=== PATIENT | male | born 1950 | race Caucasian/White ===

== ENCOUNTER → 2016-10-29 | Outpatient (CLI) | payer BC ==
[2016-10-29 11:09] LABS: ALT 27 U/L (21-72); AST 14 U/L (17-59); Alkaline Phosphatase 74 U/L (38-126); Anion Gap 7 mmol/L; Blood Urea Nitrogen 14 mg/dL (9-20); Calcium 10.3 mg/dL (8.4-10.2); Carbon Dioxide 30 mmol/L (22-30); Chloride 103 mmol/L (98-107); Cholesterol 184 mg/dL (<200); Glucose 175 mg/dL (74-99); HDL Cholesterol 67 mg/dL (40-60); Non-African American GFR(MDRD) >60 (>60 ml/min/1.73 sqM); Sodium 140 mmol/L (137-145); Total Bilirubin 0.6 mg/dL (0.2-1.3); Total Protein 6.9 g/dL (6.3-8.2); Triglycerides 53 mg/dL (<150)
== END ==
LOC: LABWHC1 09:44
PROVIDERS: ATTEND Internal Medicine Endocrinology, Diabetes & Metabolism
DX: E11.65 Type 2 diabetes mellitus with hyperglycemia (principal)
CPT/HCPCS: 36415; 80053; 80061; 82043

== ENCOUNTER → 2017-02-09 | Outpatient (CLI) | payer BC ==
[2017-02-09 10:52] LABS: ALT 29 U/L (21-72); AST 14 U/L (17-59); Alkaline Phosphatase 68 U/L (38-126); Anion Gap 6 mmol/L; Blood Urea Nitrogen 15 mg/dL (9-20); Calcium 10.6 mg/dL (8.4-10.2); Carbon Dioxide 30 mmol/L (22-30); Chloride 104 mmol/L (98-107); Cholesterol 169 mg/dL (<200); Glucose 152 mg/dL (74-99); HDL Cholesterol 59 mg/dL (40-60); Non-African American GFR(MDRD) >60 (>60 ml/min/1.73 sqM); Sodium 140 mmol/L (137-145); Total Bilirubin 0.5 mg/dL (0.2-1.3); Total Protein 6.4 g/dL (6.3-8.2); Triglycerides 56 mg/dL (<150)
[2017-02-09 16:20] LABS: Urine Creatinine 86.6 mg/dL
== END | disposition home or self-care (01) ==
LOC: LABWHC1 10:08
PROVIDERS: ATTEND Internal Medicine Endocrinology, Diabetes & Metabolism
DX: E11.65 Type 2 diabetes mellitus with hyperglycemia (principal)
CPT/HCPCS: 36415; 80053; 80061; 82043; 82570; 84443

== ENCOUNTER → 2017-10-19 | Outpatient (CLI) | payer BC, MEDICARE ==
[2017-10-19 11:06] LABS: ALT 25 U/L (21-72); AST 13 U/L (17-59); Albumin 4.1 g/dL (3.5-5.0); Alkaline Phosphatase 70 U/L (38-126); Anion Gap 9 mmol/L; Blood Urea Nitrogen 18 mg/dL (9-20); Calcium 10.5 mg/dL (8.4-10.2); Carbon Dioxide 29 mmol/L (22-30); Chloride 103 mmol/L (98-107); Cholesterol 171 mg/dL (<200); Glucose 168 mg/dL (74-99); HDL Cholesterol 58 mg/dL (40-60); LDL Cholesterol,Calculated 104 mg/dL (0-99); Potassium 4.7 mmol/L (3.5-5.1); Sodium 141 mmol/L (137-145); Total Bilirubin 0.7 mg/dL (0.2-1.3); Total Protein 6.5 g/dL (6.3-8.2); Triglycerides 43 mg/dL (<150)
[2017-10-19 17:55] LABS: Hemoglobin A1C 7.3 % (4.0-6.0)
== END | disposition home or self-care (01) ==
LOC: LABWHC1 10:05
PROVIDERS: ATTEND Internal Medicine Endocrinology, Diabetes & Metabolism
DX: E11.65 Type 2 diabetes mellitus with hyperglycemia (principal)
CPT/HCPCS: 36415; 80053; 80061; 82043; 82570; 83036

== ENCOUNTER → 2018-01-22 | Outpatient (CLI) | payer MEDICARE ==
[2018-01-22 09:46] LABS: ALT 28 U/L (21-72); AST 12 U/L (17-59); Alkaline Phosphatase 67 U/L (38-126); Anion Gap 9 mmol/L; Blood Urea Nitrogen 15 mg/dL (9-20); Calcium 10.2 mg/dL (8.4-10.2); Carbon Dioxide 29 mmol/L (22-30); Chloride 103 mmol/L (98-107); Cholesterol 152 mg/dL (<200); Glucose 139 mg/dL (74-99); HDL Cholesterol 59 mg/dL (40-60); LDL Cholesterol,Calculated 79 mg/dL (0-99); Potassium 4.5 mmol/L (3.5-5.1); Sodium 141 mmol/L (137-145); Total Bilirubin 0.6 mg/dL (0.2-1.3); Total Protein 6.2 g/dL (6.3-8.2); Triglycerides 71 mg/dL (<150)
== END | disposition home or self-care (01) ==
LOC: LABWHC1 08:55
PROVIDERS: ATTEND Internal Medicine Endocrinology, Diabetes & Metabolism
DX: E11.65 Type 2 diabetes mellitus with hyperglycemia (principal)
CPT/HCPCS: 36415; 80053; 80061; 82607; 83036; 84443

== ENCOUNTER → 2018-08-12 | Outpatient (CLI) | payer MEDICARE ==
--- NOTE | 2018-08-12 12:15 | XR ---
EXAMINATION TYPE: XR thoracic spine 2V DATE OF EXAM: 08/12/2018 COMPARISON: NONE HISTORY: Pain Alignment is anatomic. There is no compression deformities. Vertebral body height and disc interspa bruno are maintained. Multilevel hypertrophic and degenerative changes of the vertebral column. Degene rative disc disease involving the lower cervical spine. Curvature of the spine noted. IMPRESSION: 1. Multilevel hypertrophic and degenerative changes.
--- NOTE | 2018-08-12 12:49 | XR ---
EXAMINATION TYPE: XR cervical spine comp DATE OF EXAM: 08/12/2018 COMPARISON: NONE HISTORY: Palpable abnormal TECHNIQUE: Four views are submitted. FINDINGS: The odontoid is intact. There are no compression deformities. The prevertebral soft tissue structur es are within normal limits. Severe degenerative disc disease C5-6 and C6-C7 with hypertrophic spurr ing. Multilevel facet arthropathy. Foraminal encroachment at these levels. IMPRESSION: 1. Multilevel severe degenerative disc disease.
== END ==
LOC: RADXRMAIN 11:48
PROVIDERS: ATTEND Family Medicine
DX: M47.812 Spondylosis without myelopathy or radiculopathy, cervical region (principal)
CPT/HCPCS: 72050; 72070

== ENCOUNTER → 2018-09-21 | Outpatient (CLI) | payer MEDICARE ==
[2018-09-21 16:05] LABS: Blood Urea Nitrogen 21 mg/dL (9-20)
--- NOTE | 2018-09-22 07:23 | CT ---
EXAMINATION TYPE: CT soft tissue neck w con DATE OF EXAM: 09/21/2018 HISTORY: Localized swelling, mass and lump on left ear area. BB placed on region of interest. COMPARISON: NONE CT DLP: 738.6 mGycm. Automated Exposure Control for Dose Reduction was Utilized. TECHNIQUE: CT scan of the neck is performed with IV Contrast, patient injected with 100ml mL of Isov ue 300, axial images are obtained, coronal and sagittal reformatted images are reviewed. FINDINGS: Metallic BB is placed at level of clinical concern axial image 73. In the posterior scalp at level of inferior aspect posterior fossa and skull base just below skin surface there is 17 x 12 mm oval soft tissue lesion with slight lobulation measuring 21 mm craniocaudal dimension axial image 72 and sagit rajni image 76. There is surrounding subcutaneous fat noted. Lesion is superficial to the deeper scalp muscles. Airway: No gross abnormality seen. Parotid/submandibular glands: No gross abnormality seen. Carotid/Vascular Structures: Mild calcified plaque right carotid bulb is present. There is mild calci fied plaque of aorta extending into branch vessels. Osseous Structures: There is moderate disc space narrowing with vacuum disc phenomenon at C5-C6 and C 6-C7 levels. There is advanced disc space narrowing with endplate sclerosis and mild to moderate ante rior spurring at C7-T1 level. Other: There are some scattered subcentimeter lymph nodes throughout the neck bilaterally, no suspici ous greater than 1 cm adenopathy is present. The parapharyngeal Pharyngeal fat spaces are maintained bilaterally. IMPRESSION: A 2.1 cm slightly lobulated subcutaneous soft tissue mass corresponds to site of palpable abnormality. Etiology uncertain. Differential would include metastatic focus. Imaging guided samplin g likely under ultrasound can be performed to further evaluate if desired.
== END | disposition home or self-care (01) ==
LOC: RADCTMAIN 15:27
PROVIDERS: ATTEND Otolaryngology
DX: R22.1 Localized swelling, mass and lump, neck (principal)
CPT/HCPCS: 82565; 84520; 70491; 36415; Q9967

== ENCOUNTER → 2018-10-05 | Outpatient (CLI) | payer MEDICARE ==
[2018-10-05 17:14] LABS: Albumin 4.3 g/dL (3.80-4.90); Albumin/Globulin Ratio 2.39 (1.60-3.17); Anion Gap 5.5 mmol/L (4.00-12.00); Calcium 10.4 mg/dL (8.7-10.3); Carbon Dioxide 29.5 mmol/L (21.6-31.8); Globulin 1.8 g/dL (1.6-3.3); LDL Cholesterol,Calculated 84.6 mg/dL (0.0-131.0); Potassium 4.9 mmol/L (3.5-5.5); Total Bilirubin 0.7 mg/dL (0.3-1.2); Total Protein 6.1 g/dL (6.2-8.2); VLDL Calculation 12.4 mg/dL (5.00-40.00)
[2018-10-05 19:54] LABS: Hemoglobin A1C 7.2 % (4.0-6.0)
== END | disposition home or self-care (01) ==
LOC: LABWHC1 09:19
PROVIDERS: ATTEND Internal Medicine Endocrinology, Diabetes & Metabolism
DX: E11.65 Type 2 diabetes mellitus with hyperglycemia (principal)
CPT/HCPCS: 36415; 80053; 80061; 82043; 82570; 83036; 84443

== ENCOUNTER → 2019-04-18 | Outpatient (CLI) | payer MEDICARE ==
[2019-04-18 12:59] LABS: Basophils % (A) 0 %; Eosinophils # (A) 0.3 k/uL (0-0.7); Eosinophils % (A) 2 %; HGB 16.3 gm/dL (13.0-17.5); Lymphocytes # (A) 0.9 k/uL (1.0-4.8); Lymphocytes % (A) 6 %; MCH 32.1 pg (25.0-35.0); MCHC 34.7 g/dL (31.0-37.0); MCV 92.5 fL (80.0-100.0); Mean Platelet Volume 6.4; Monocytes # (A) 0.8 k/uL (0-1.0); Monocytes % (A) 5 %; Neutrophils # (A) 13.1 k/uL (1.3-7.7); Neutrophils % (A) 86 %; Platelet Count 283 k/uL (150-450); RBC 5.08 m/uL (4.30-5.90); RDW 12.7 % (11.5-15.5); WBC 15.2 k/uL (3.8-10.6)
[2019-04-18 13:06] LABS: ALT 18 U/L (21-72); AST 15 U/L (17-59); African American GFR (CKD) >90 (>60 ml/min/1.73 sqM); Albumin 4.1 g/dL (3.5-5.0); Albumin/Globulin Ratio 1.5; Alkaline Phosphatase 72 U/L (38-126); Anion Gap 11 mmol/L; Blood Urea Nitrogen 23 mg/dL (9-20); Calcium 11.1 mg/dL (8.4-10.2); Carbon Dioxide 23 mmol/L (22-30); Chloride 105 mmol/L (98-107); Globulin 2.7 g/dL; Glucose 143 mg/dL (74-99); Potassium 4.5 mmol/L (3.5-5.1); Sodium 139 mmol/L (137-145); Total Protein 6.8 g/dL (6.3-8.2)
[2019-04-18 20:42] LABS: Hemoglobin A1C 6.5 % (4.0-6.0)
== END | disposition home or self-care (01) ==
LOC: LABWHC1 12:30
PROVIDERS: ATTEND Internal Medicine
DX: I10 Essential (primary) hypertension (principal); E11.9 Type 2 diabetes mellitus without complications
CPT/HCPCS: 36415; 80053; 83036; 85025

== ENCOUNTER → 2019-05-09 | Outpatient (CLI) | payer MEDICARE ==
[2019-05-09 18:29] LABS: African American GFR (CKD) 107.9 (60.0-200.0); Albumin 3.8 g/dL (3.80-4.90); Albumin/Globulin Ratio 2.92 (1.60-3.17); Anion Gap 8.6 mmol/L (4.00-12.00); BUN/Creat Ratio 18.75 Ratio (12.00-20.00); Calcium 9.7 mg/dL (8.7-10.3); Carbon Dioxide 27.4 mmol/L (21.6-31.8); Globulin 1.3 g/dL (1.6-3.3); Non-African American GFR(CKD) 93.1 (60.0-200.0); Total Bilirubin 0.4 mg/dL (0.2-1.2); Total Protein 5.1 g/dL (6.2-8.2)
== END | disposition home or self-care (01) ==
LOC: LABWHC1 14:24
PROVIDERS: ATTEND Internal Medicine Endocrinology, Diabetes & Metabolism
DX: E11.65 Type 2 diabetes mellitus with hyperglycemia (principal); E83.52 Hypercalcemia
CPT/HCPCS: 36415; 80053; 82306; 83970

== ENCOUNTER → 2019-08-09 | Outpatient (CLI) | payer MEDICARE ==
[2019-08-09 20:10] LABS: African American GFR (CKD) 90.5 (60.0-200.0); Albumin 4.2 g/dL (3.80-4.90); Albumin/Globulin Ratio 2.8 (1.60-3.17); Anion Gap 4.4 mmol/L (4.00-12.00); Calcium 9.9 mg/dL (8.7-10.3); Carbon Dioxide 29.6 mmol/L (21.6-31.8); Globulin 1.5 g/dL (1.6-3.3); Non-African American GFR(CKD) 78.1 (60.0-200.0); Potassium 4.9 mmol/L (3.5-5.5); Total Bilirubin 0.6 mg/dL (0.3-1.2); Total Protein 5.7 g/dL (6.2-8.2)
== END | disposition home or self-care (01) ==
LOC: LABWHC1 12:15
PROVIDERS: ATTEND Internal Medicine Endocrinology, Diabetes & Metabolism
DX: E21.3 Hyperparathyroidism, unspecified (principal)
CPT/HCPCS: 36415; 80053; 82306; 83970

== ENCOUNTER → 2019-09-07 | Outpatient (CLI) | payer MEDICARE ==
--- NOTE | 2019-09-07 10:05 | US ---
EXAMINATION TYPE: US thyroid st tissue head/neck DATE OF EXAM: 09/07/2019 COMPARISON: NONE CLINICAL HISTORY: E21.0 Primary hyperparathyroidism. Tired all the time GLAND SIZE: Right Lobe: 4.2 x 1.2 x 1.6 cm Overall Parenchyma: homogenous Left Lobe: 5.3 x 1.2 x 1.8 cm Overall Parenchyma: homogeneous Isthmus Thickness: 0.4 cm NODULES RIGHT: # of nodules measured on right: 1 1. 0.4 X 0.4 x 0.3 cm hypoechoic mixed nodule at the mid pole with well-defined margins; . This no dule is wider than tall and shows no intranodular vascularity. Prior size: No previous LEFT: # of nodules measured on left: 1 inferior to the left thyroid 1. 1.4 X 1.0 x 0.9 cm hypoechoic solid nodule inferior to the left thyroid with well defined margin s; . This nodule is wider than tall and shows intranodular vascularity. Prior size: No previous ISTHMUS: # of nodules measured in the isthmus: 0 Bilateral neck scanned, no evidence of lymphadenopathy. IMPRESSION: 1. Subcentimeter nodules. 2. Nodule on the left inferior thyroid greater than 1 cm
--- NOTE | 2019-09-07 15:43 | BD ---
EXAMINATION TYPE: Axial Bone Density DATE OF EXAM: 09/07/2019 COMPARISON: NONE CLINICAL HISTORY: Height: 72 IN Weight: 258 LBS RISK FACTORS HISTORY OF: Active: YES Lost more than 2 inches in height since high school: YES 07/21" MEDICATIONS: Additional Medications: VIT D, CHOLESTEROL MEDS, BLOOD PRESSURE MEDS, DIABETES MEDS, EXAM MEASUREMENTS: Bone mineral densitometry was performed using the [employer] System. Bone mineral density as measured about the Lumbar spine is: ----- L1-L4(G/cm2): 1.328 T Score Values are as follows: ----- L2: -0.5 ----- L3: 1.8 ----- L4: 2.2 ----- L1-L4: 1.2 Bone mineral density BASELINE Bone mineral density about the R hip (g/cm2): 0.845 Bone mineral density about the L hip (g/cm2): 0.831 T Score values are as follows: -----R Neck: -1.4 -----L Neck: -1.5 -----R Total: -0.5 -----L Total: -0.3 Bone mineral density BASELINE IMPRESSION: Osteopenia (T Score between -2.5 and -1). There is slightly increased risk of fracture and the patient may be considered for treatment. Re-Screen 2-5 years. NOTE: T-SCORE=SD OF THE YOUNG ADULT MEAN.
== END | disposition home or self-care (01) ==
LOC: RADUSWWP 09:29
PROVIDERS: ATTEND Internal Medicine Endocrinology, Diabetes & Metabolism
DX: E04.2 Nontoxic multinodular goiter (principal); M85.88 Other specified disorders of bone density and structure, other site
CPT/HCPCS: 76536; 77080

== ENCOUNTER → 2020-04-16 | Outpatient (CLI) | payer MEDICARE ==
[2020-04-16 15:31] LABS: African American GFR (CKD) 102.1 (60.0-200.0); Albumin 4.2 g/dL (3.80-4.90); Albumin/Globulin Ratio 2.8 (1.60-3.17); Anion Gap 6.6 mmol/L (4.00-12.00); BUN/Creat Ratio 26.67 Ratio (12.00-20.00); Calcium 10.3 mg/dL (8.7-10.3); Carbon Dioxide 28.4 mmol/L (21.6-31.8); Chol/HDL Ratio 3.19; Globulin 1.5 g/dL (1.6-3.3); LDL Cholesterol,Calculated 106.4 mg/dL (0.0-131.0); Non-African American GFR(CKD) 88.1 (60.0-200.0); Potassium 4.7 mmol/L (3.5-5.5); Total Bilirubin 0.7 mg/dL (0.2-1.2); Total Protein 5.7 g/dL (6.2-8.2); VLDL Calculation 11.6 mg/dL (5.00-40.00)
[2020-04-16 17:19] LABS: Urine Creatinine 117.7 mg/dL
== END | disposition home or self-care (01) ==
LOC: LABWHC1 10:37
PROVIDERS: ATTEND Internal Medicine Endocrinology, Diabetes & Metabolism
DX: E21.0 Primary hyperparathyroidism (principal); E11.65 Type 2 diabetes mellitus with hyperglycemia
CPT/HCPCS: 36415; 80053; 80061; 82043; 82306; 82570; 83036; 83970; 84443

== ENCOUNTER → 2020-04-30 | Outpatient (CLI) | payer MEDICARE ==
[2020-04-30 16:00] LABS: African American GFR (CKD) >90 (>60 ml/min/1.73 sqM); Blood Urea Nitrogen 17 mg/dL (9-20); Non-African American GFR(CKD) >90 (>60 ml/min/1.73 sqM)
--- NOTE | 2020-04-30 22:44 | CT ---
CT CHEST FOR PULMONARY EMBOLISM. EXAMINATION TYPE: CT angio chest DATE OF EXAM: 04/30/2020 INDICATION: follow up for PE [address] DLP: 632 mGycm, Automated exposure control for dose reduction was used. CONTRAST: Patient injected with 100 mL of Isovue 370. COMPARISON: 10/12/2019 TECHNIQUE: CT of the chest is performed on a spiral scan at 2 mm thick sections. Study is performed with intravenous contrast timed for evaluation for pulmonary embolism. This will limit additional po rtions of the evaluation. 3-D MIP images reconstructed by the technologist are reviewed on the compu ter in the coronal and sagittal planes. FINDINGS: No persistent filling defects are evident to suggest an acute pulmonary embolism. Previous bilateral pulmonary emboli are not evident on the current exam No mediastinal or hilar adenopathy enlarged by CT criteria is evident. The ascending aorta diameter at the level of the main pulmonary artery is 0.4 cm. The main pulmonary artery diameter at the bifur cation is 2.8 cm. Lung windows are clear. Limited CT section through the upper abdomen are unremarkable. IMPRESSIONS: 1. No acute pulmonary embolism.
== END | disposition home or self-care (01) ==
LOC: RADCTMAIN 15:22
PROVIDERS: ATTEND Internal Medicine
DX: I26.99 Other pulmonary embolism without acute cor pulmonale (principal); R91.8 Other nonspecific abnormal finding of lung field; R06.02 Shortness of breath; Z88.8 Allergy status to other drugs, medicaments and biological substances
CPT/HCPCS: 82565; 84520; 71275; 36415; Q9967

== ENCOUNTER → 2020-09-07 | Outpatient (CLI) | payer MEDICARE | END | disposition home or self-care (01) | LOC: LABWHC1 10:54 | PROVIDERS: ATTEND Surgery | DX: Z48.89 Encounter for other specified surgical aftercare (principal); Z98.890 Other specified postprocedural states | CPT/HCPCS: 36415; 82310 ==

== ENCOUNTER → 2020-11-14 | Outpatient (CLI) | payer MEDICARE ==
[2020-11-14 18:32] LABS: Hemoglobin A1C 7.7 % (4.0-6.0)
[2020-11-14 22:47] LABS: African American GFR (CKD) 101.4 (60.0-200.0); Albumin 4.5 g/dL (3.80-4.90); Albumin/Globulin Ratio 2.81 (1.60-3.17); Anion Gap 10.8 mmol/L (4.00-12.00); BUN/Creat Ratio 21.11 Ratio (12.00-20.00); Calcium 9.4 mg/dL (8.7-10.3); Carbon Dioxide 25.2 mmol/L (21.6-31.8); Chol/HDL Ratio 3.15; Globulin 1.6 g/dL (1.6-3.3); LDL Cholesterol,Calculated 104.4 mg/dL (0.0-131.0); Non-African American GFR(CKD) 87.5 (60.0-200.0); Potassium 4.6 mmol/L (3.5-5.5); Total Bilirubin 0.7 mg/dL (0.2-1.2); Total Protein 6.1 g/dL (6.2-8.2); VLDL Calculation 13.6 mg/dL (5.00-40.00)
[2020-11-15 03:36] LABS: Urine Creatinine 103.1 mg/dL
== END | disposition home or self-care (01) ==
LOC: LABWHC1 09:12
PROVIDERS: ATTEND Internal Medicine Endocrinology, Diabetes & Metabolism
DX: E11.65 Type 2 diabetes mellitus with hyperglycemia (principal)
CPT/HCPCS: 36415; 80053; 80061; 82043; 82570; 83036; 84443

== ENCOUNTER → 2021-11-25 | Outpatient (CLI) | payer MEDICARE ==
[2021-11-25 13:34] LABS: Appearance,Urine Clear (Clear); Bilirubin,Urine Negative (Negative); Blood,Urine Negative (Negative); Color,Urine Yellow; Glucose,Urine (UA) 4+ (Negative); Ketones,Urine Negative (Negative); Leukocyte Esterase,Urine Negative (Negative); Nitrite,Urine Negative (Negative); Protein,Urine Trace (Negative); Specific Gravity,Urine 1.026 (1.001-1.035); Urobilinogen,Urine <2.0 mg/dL (<2.0)
[2021-11-25 18:29] LABS: Basophils # (A) 0.05 X 10*3/uL (0.00-0.10); Basophils % (A) 0.7 %; Eosinophils # (A) 0.33 X 10*3/uL (0.04-0.35); Eosinophils % (A) 4.9 %; HCT 45.9 % (39.6-50.0); HGB 14.3 g/dL (13.0-17.0); Immature Grans, Automated 0.4 %; Lymphocytes # (A) 1.78 X 10*3/uL (0.90-5.00); Lymphocytes % (A) 26.4 %; MCH 30.1 pg (27.0-32.0); MCHC 31.2 g/dL (32.0-37.0); MCV 96.6 fL (80.0-97.0); Mean Platelet Volume 11.2 fL (9.5-12.2); Monocytes # (A) 0.54 X 10*3/uL (0.20-1.00); NRBC Per 100 WBC 0 /100 WBCS (0.0-0.0); Neutrophils % (A) 59.6 %; Platelet Count 253 X 10*3/uL (140-440); RBC 4.75 X 10*6/uL (4.40-5.60); RDW 12.8 % (11.5-14.5); WBC 6.73 X 10*3/uL (4.50-10.00)
[2021-11-25 18:43] LABS: ALT 15 U/L (10-49); AST 13 U/L (14-35); Albumin 4.5 g/dL (3.8-4.9); Albumin/Globulin Ratio 2.05 (1.60-3.17); Alkaline Phosphatase 52 U/L (41-126); BUN/Creat Ratio 19.92 Ratio (12.00-20.00); Blood Urea Nitrogen 25.1 mg/dL (9.0-27.0); Calcium 9.7 mg/dL (8.7-10.3); Carbon Dioxide 26.1 mmol/L (20.0-27.5); Chloride 104 mmol/L (96-109); Chol/HDL Ratio 2.76 Ratio; Globulin 2.2 g/dL (1.6-3.3); Glucose 127 mg/dL (70-110); LDL Cholesterol,Calculated 84.6 mg/dL (0.0-131.0); Non-African American GFR(CKD) 57.8 (60.0-200.0); Potassium 5.2 mmol/L (3.5-5.5); Sodium 141 mmol/L (135-145); Total Protein 6.7 g/dL (6.2-8.2); Uric Acid 5.5 mg/dL (3.7-8.7)
== END | disposition home or self-care (01) ==
LOC: LABWHC1 10:32
PROVIDERS: ATTEND Internal Medicine Endocrinology, Diabetes & Metabolism
DX: E11.65 Type 2 diabetes mellitus with hyperglycemia (principal); E21.0 Primary hyperparathyroidism; N40.1 Benign prostatic hyperplasia with lower urinary tract symptoms; R06.02 Shortness of breath; E78.2 Mixed hyperlipidemia; E55.9 Vitamin D deficiency, unspecified; I43 Cardiomyopathy in diseases classified elsewhere; E53.8 Deficiency of other specified B group vitamins
CPT/HCPCS: 36415; 80053; 80061; 81003; 82043; 82306; 82570; 82607; 82785; 83036; 83880; 83970; 84153; 84443; 84550; 85025

== ENCOUNTER → 2021-12-30 | Outpatient (CLI) | payer MEDICARE ==
--- NOTE | 2021-12-30 15:43 | US ---
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 Patient states he had a clot in his lungs in . Hypercoagulable state. Patient is on eliquis. Hx left leg vein stripping. SIDE PERFORMED: Bilateral TECHNIQUE: The lower extremity deep venous system is examined utilizing real time linear array sonog cam with graded compression, doppler sonography and color-flow sonography. VESSELS IMAGED: Common Femoral Vein Deep Femoral Vein Greater Saphenous Vein * Femoral Vein Popliteal Vein Small Saphenous Vein * Proximal Calf Veins (* superficial vessels) Limited due to body habitus. Right Leg: No evidence of DVT in veins imaged at this time. Left Leg: No evidence of DVT in veins imaged at this time. IMPRESSION: No evidence for DVT at this time.
== END | disposition home or self-care (01) ==
LOC: RADUSWWP 13:51
PROVIDERS: ATTEND Internal Medicine Hematology & Oncology
DX: D68.59 Other primary thrombophilia (principal)
CPT/HCPCS: 93970

== ENCOUNTER → 2022-06-09 | Outpatient (CLI) | payer MEDICARE ==
[2022-06-09 18:55] LABS: Basophils # (A) 0.05 X 10*3/uL (0.00-0.10); Basophils % (A) 0.7 %; Eosinophils # (A) 0.28 X 10*3/uL (0.04-0.35); Eosinophils % (A) 3.7 %; HCT 45.6 % (39.6-50.0); HGB 14.7 g/dL (13.0-17.0); Immature Grans, Automated 0.3 %; Lymphocytes # (A) 1.62 X 10*3/uL (0.90-5.00); Lymphocytes % (A) 21.4 %; MCH 30.4 pg (27.0-32.0); MCHC 32.2 g/dL (32.0-37.0); MCV 94.2 fL (80.0-97.0); Mean Platelet Volume 11.3 fL (9.5-12.2); Monocytes # (A) 0.57 X 10*3/uL (0.20-1.00); Monocytes % (A) 7.5 %; NRBC Per 100 WBC 0 /100 WBCS (0.0-0.0); Neutrophils # (A) 5.02 X 10*3/uL (1.80-7.70); Neutrophils % (A) 66.4 %; Platelet Count 288 X 10*3/uL (140-440); RBC 4.84 X 10*6/uL (4.40-5.60); RDW 12.8 % (11.5-14.5); WBC 7.56 X 10*3/uL (4.50-10.00)
[2022-06-09 19:22] LABS: % Iron Saturation 10.42 (15.00-50.00); ALT 15 U/L (10-49); AST 13 U/L (14-35); African American GFR (CKD) 103.4 (60.0-200.0); Albumin 4.4 g/dL (3.8-4.9); Albumin/Globulin Ratio 1.95 (1.60-3.17); Alkaline Phosphatase 65 U/L (41-126); BUN/Creat Ratio 17.08 Ratio (12.00-20.00); Blood Urea Nitrogen 14.4 mg/dL (9.0-27.0); Calcium 9.7 mg/dL (8.7-10.3); Carbon Dioxide 27.1 mmol/L (20.0-27.5); Chloride 104 mmol/L (96-109); Globulin 2.3 g/dL (1.6-3.3); Glucose 130 mg/dL (70-110); Iron 43 ug/dL (65-175); LDL Cholesterol,Calculated 85.7 mg/dL (0.0-131.0); Non-African American GFR(CKD) 89.2 (60.0-200.0); Potassium 5.4 mmol/L (3.5-5.5); Sodium 141 mmol/L (135-145); Total Iron Binding Capacity 412 ug/dL (228-460); Total Protein 6.7 g/dL (6.2-8.2); VLDL Calculation 10.56 mg/dL (5.00-40.00)
[2022-06-09 22:21] LABS: Microalbumin Creatinine Ratio <30 mg/g Creat (0-30); Urine Creatinine 89.7 mg/dL (39.0-259.0)
== END | disposition home or self-care (01) ==
LOC: LABWHC1 11:56
PROVIDERS: ATTEND Family Medicine
DX: I10 Essential (primary) hypertension (principal); E11.9 Type 2 diabetes mellitus without complications; E53.8 Deficiency of other specified B group vitamins; E55.9 Vitamin D deficiency, unspecified; R06.00 Dyspnea, unspecified
CPT/HCPCS: 36415; 80053; 80061; 82043; 82306; 82570; 82607; 82785; 83036; 83540; 83550; 84439; 84443; 85025

== ENCOUNTER → 2022-07-23 | Outpatient (CLI) | payer MEDICARE ==
[2022-07-23 16:48] LABS: ALT 14 U/L (10-49); AST 11 U/L (14-35); African American GFR (CKD) 100.6 (60.0-200.0); Albumin 4.5 g/dL (3.8-4.9); Albumin/Globulin Ratio 2.25 (1.60-3.17); Alkaline Phosphatase 67 U/L (41-126); BUN/Creat Ratio 17.11 Ratio (12.00-20.00); Blood Urea Nitrogen 15.4 mg/dL (9.0-27.0); Calcium 9.9 mg/dL (8.7-10.3); Carbon Dioxide 24.7 mmol/L (20.0-27.5); Chloride 100 mmol/L (96-109); Chol/HDL Ratio 2.65 Ratio; Glucose 147 mg/dL (70-110); LDL Cholesterol,Calculated 90.7 mg/dL (0.0-131.0); Non-African American GFR(CKD) 86.8 (60.0-200.0); Potassium 4.5 mmol/L (3.5-5.5); Sodium 138 mmol/L (135-145); Total Protein 6.5 g/dL (6.2-8.2); VLDL Calculation 12.64 mg/dL (5.00-40.00)
[2022-07-23 18:31] LABS: Urine Creatinine 66.7 mg/dL (39.0-259.0)
== END | disposition home or self-care (01) ==
LOC: LABWHC1 09:53
PROVIDERS: ATTEND Internal Medicine Endocrinology, Diabetes & Metabolism
DX: E11.65 Type 2 diabetes mellitus with hyperglycemia (principal)
CPT/HCPCS: 36415; 80053; 80061; 82043; 82306; 82570; 83036; 83970; 84443

== ENCOUNTER 2022-12-09 16:41 | Inpatient (IN) | payer MEDICARE ==
[2022-12-09] MEDS ORDERED: SODIUM CHLORIDE 0.9% 1,000 ML IV ONE ×2 (16:46→17:45)
[2022-12-09] MEDS ORDERED: SODIUM CHLORIDE 0.9% 500 ML 500 ML IV ONE ×2 (16:46→18:15)
[2022-12-09] MEDS ORDERED: ATROPINE SULFATE 0.1 MG/ML 10ML SYRINGE IV STA (16:53)
[2022-12-09] MEDS ORDERED: NOREPINEPHRINE 4 MG in SODIUM CHLORIDE 0.9% 250 ML IV SCH (17:00)
[2022-12-09] MEDS ORDERED: SODIUM CHLORIDE 0.9% IVPB STA (17:05)
[2022-12-09] MEDS ORDERED: MAGNESIUM SULFATE IVPB STA (17:05)
[2022-12-09] MEDS ORDERED: VANCOMYCIN IV PER PHARMACY 1 EACH MISC MISCELLANE PRN (17:12)
[2022-12-09] MEDS ORDERED: SODIUM CHLORIDE 0.9% 1,000 ML IV STA (17:13)
[2022-12-09] MEDS ORDERED: NOREPINEPHRINE 32 MG in SODIUM CHLORIDE 0.9% 218 ML IV SCH (17:15)
[2022-12-09 17:29] LABS: AST 39 U/L (17-59); Albumin 3.3 g/dL (3.5-5.0); Alkaline Phosphatase 40 U/L (38-126); Chloride 91 mmol/L (98-107); Glucose 182 mg/dL (74-99); Sodium 135 mmol/L (137-145); Total Bilirubin 0.4 mg/dL (0.2-1.3); Total Protein 5.3 g/dL (6.3-8.2)
[2022-12-09 17:34] LABS: African American GFR (CKD) 4 (>60 ml/min/1.73 sqM); Non-African American GFR(CKD) 4 (>60 ml/min/1.73 sqM)
[2022-12-09 17:35] LABS: ALT 37 U/L (4-49)
[2022-12-09 17:40] LABS: VBG PH 6.61 (7.31-7.41)
[2022-12-09 17:48] LABS: HCT 44.9 % (39.0-53.0); HGB 12.9 gm/dL (13.0-17.5); Hypochromasia Marked; MCH 31.4 pg (25.0-35.0); MCHC 28.8 g/dL (31.0-37.0); MCV 108.9 fL (80.0-100.0); Macrocytosis Marked; Mean Platelet Volume 11.5; Platelet Count 238 k/uL (150-450); RBC 4.12 m/uL (4.30-5.90); RDW 13.2 % (11.5-15.5); WBC 15.2 k/uL (3.8-10.6)
[2022-12-09 17:51] LABS: INR 1.2 (<1.2); Partial Thromboplastin Time 43.8 sec (22.0-30.0); Prothrombin Time 12.3 sec (9.0-12.0)
[2022-12-09 17:51] LABS: Glucose,Whole Blood 177 mg/dL (70-110)
[2022-12-09 17:57] LABS: ABG Oxygen Saturation 96.9 % (94-97); ABG PCO2 20 mmHg (35-45); ABG PO2 199 mmHg (83-108); ABG TCO2 3 mmol/L (19-24)
[2022-12-09] MEDS ORDERED: CEFEPIME 2 GM in SODIUM CHLORIDE 0.9% 100 ML IVPB SCH (18:00)
[2022-12-09] MEDS ORDERED: DEXTROSE 5% IN WATER 1,000 ML with SODIUM BICARB (1 MEQ/ML) 150 ML IV ONE (18:00)
[2022-12-09] MEDS ORDERED: VASOPRESSIN 60 UNIT in SODIUM CHLORIDE 0.9% 150 ML IV SCH ×2 (18:00→19:45)
[2022-12-09 18:02] LABS: Band Neutrophils % 5 %; Eosinophils # (M) 0.15 k/uL (0-0.7); Lymphocytes # (M) 2.43 k/uL (1.0-4.8); Metamyelocytes % 2 %; Monocytes # (M) 1.67 k/uL (0-1.0); Myelocytes # (M) 0.46 k/uL (0); Myelocytes % 3 %; Neutrophils % (M) 63 %; Nucleated Red Blood Cells 0 /100 WBC (0-0); Total Cells Counted 200
[2022-12-09 18:03] LABS: Crenated RBC Present
[2022-12-09 18:03] LABS: ABG Base Excess -36.4 mmol/L; ABG HCO3 2 mmol/L (21-25); ABG PH <6.80 (7.35-7.45); Allen Test Performed? no
[2022-12-09 18:06] LABS: Appearance,Urine Clear (Clear); Bilirubin,Urine Negative (Negative); Blood,Urine Large (Negative); Color,Urine Yellow; Glucose,Urine (UA) 4+ (Negative); Ketones,Urine Negative (Negative); Leukocyte Esterase,Urine Negative (Negative); Mucus,Urine Rare /hpf; Nitrite,Urine Negative (Negative); Protein,Urine Trace (Negative); RBC,Urine 54 /hpf (0-5); Specific Gravity,Urine 1.013 (1.001-1.035); Urobilinogen,Urine <2.0 mg/dL (<2.0); WBC,Urine 19 /hpf (0-5)
[2022-12-09 18:07] LABS: Amphetamine Screen,Urine Not Detected (NotDetected); Barbiturate Screen,Urine Not Detected (NotDetected); Benzodiazepines Screen,Urine Not Detected (NotDetected); Cocaine Screen,Urine Not Detected (NotDetected); Methadone Screen, Urine Not Detected (NotDetected); Opiate Screen,Urine Not Detected (NotDetected); Oxycodone Screen, Urine Not Detected (NotDetected); Phencyclidine Screen,Urine Not Detected (NotDetected); Tricyclic Antidepressant,Urine Not Detected (NotDetected); Urn Cannabinoid Scrn Not Detected (NotDetected)
[2022-12-09] MEDS: EPINEPHrine 4 MG in DEXTROSE 5% IN WATER 250 ML IV ONE ×4 (18:10→21:28)
[2022-12-09] MEDS ORDERED: SODIUM BICARB 8.4% 50 ML SYR (1 MEQ/ML) IV STA ×2 (18:15→22:15)
[2022-12-09] MEDS ORDERED: CALCIUM CHLORIDE 100 MG/ML 10 ML SYRINGE IVP STA (18:18)
[2022-12-09] MEDS ORDERED: ETOMIDATE 2 MG/ML 10 ML VIAL IVP STA (18:22)
[2022-12-09] MEDS ORDERED: ROCURONIUM 10 MG/ML (5 ML VIAL) IV STA (18:23)
[2022-12-09 18:26] LABS: Lactic Acid, Venous 20.7 mmol/L (0.7-2.0)
[2022-12-09] MEDS ORDERED: INSULIN REGULAR 100 UNIT/ML VIAL (IV) IV ONE (18:28)
[2022-12-09] MEDS ORDERED: DEXTROSE 50% SYRINGE 50 ML IVP ONE (18:28)
[2022-12-09] MEDS ORDERED: SODIUM ZIRCONIUM CYCLOSILICATE 10 GM PACKET PO ONE (18:28)
[2022-12-09] MEDS ORDERED: ALBUTEROL NEB (CONC) 2.5 MG/0.5 ML INHALATION ONE (18:28)
[2022-12-09 18:29] LABS: Carbon Dioxide <5 mmol/L (22-30); Potassium 6.5 mmol/L (3.5-5.1)
[2022-12-09 18:30] LABS: Blood Urea Nitrogen 110 mg/dL (9-20)
[2022-12-09] MEDS ORDERED: CALCIUM GLUCONATE IN NACL 1 GM in SALINE 1 100ML.BAG IVPB ONE (18:45)
--- NOTE | 2022-12-09 18:55 | XR ---
EXAMINATION TYPE: XR chest 1V portable DATE OF EXAM: 12/09/2022 COMPARISON: 10/13/2019r INDICATION: ET tube placement TECHNIQUE: Frontal and lateral views of the chest are obtained. FINDINGS: The heart size is normal. The pulmonary vasculature is normal. The lungs are clear. Endotracheal tube tip is 4.4 cm above the pat. Nasogastric tube tip is in the left upper quadrant of the abdomen. IMPRESSION: 1. No acute pulmonary process. 2. Lines and catheters discussed above
--- NOTE | 2022-12-09 19:51 | CT ---
EXAMINATION TYPE: CT brain wo con DATE OF EXAM: 12/09/2022 COMPARISON: 01/04/2011 INDICATION: AMS DLP: 1267.4 mGycm, Automated exposure control for dose reduction was used. CONTRAST: None CT of the brain is performed utilizing 3 mm thick sections through the posterior fossa and 3 mm thick sections through the remaining calvarium. Study is performed within 24 hours of arrival to the hosp [facility]. No abnormal hyperdensity is present to suggest an acute intracranial hemorrhage. No mass lesion is evident. No acute infarcts are evident. Ventricles and sulci are slightly prominent for the patient age. Paranasal sinuses and mastoid air cells within the [id number] are clear. Endotracheal tube and nasogastric tube are present IMPRESSIONS: 1. No acute intracranial process. Some mild age-related atrophy is present
--- NOTE | 2022-12-09 19:54 | CT ---
CT CHEST FOR PULMONARY EMBOLISM. EXAMINATION TYPE: CT chest angio for PE DATE OF EXAM: 12/09/2022 INDICATION: Hypotension, bradycardic, dyspnea CT DLP: 2273.4 mGycm, Automated exposure control for dose reduction was used. CONTRAST: Patient injected with 100cc mL of Isovue 370. COMPARISON: None TECHNIQUE: CT of the chest is performed on a spiral scan at 2 mm thick sections. Study is performed with intravenous contrast timed for evaluation for pulmonary embolism. This will limit additional po rtions of the evaluation. 3-D MIP images reconstructed by the technologist are reviewed on the compu ter in the coronal and sagittal planes. FINDINGS: No persistent filling defects are evident to suggest an acute pulmonary embolism. No mediastinal or hilar adenopathy enlarged by CT criteria is evident. The ascending aorta diameter at the level of the main pulmonary artery is 3.4 cm. The main pulmonary artery diameter at the bifur cation is 3.4 cm. Mild compressive atelectasis is dependent portions of the left lung. Endotracheal tube tip is above the pat. Nasogastric tube tip is in the stomach. Limited CT section through the upper abdomen are unremarkable. IMPRESSIONS: 1. No acute pulmonary embolism. 2. Mild compressive atelectasis dependent left lung base
[2022-12-09] MEDS ORDERED: VANCOMYCIN 2,000 MG in SODIUM CHLORIDE 0.9% 500 ML 500 ML IVPB ONE (20:00)
--- NOTE | 2022-12-09 20:02 | CT ---
EXAMINATION TYPE: CT abdomen pelvis w con DATE OF EXAM: 12/09/2022 COMPARISON: INDICATION: hypotension, bradycardic, dyspnea. AMS. Dehydration DLP: Combined DLP of 2273.4 mGycm, Automated exposure control for dose reduction was used. CONTRAST: 100cc mL of Isovue 370. Study performed without Oral Contrast TECHNIQUE: Axial images were obtained from above the diaphragm to the pubic rami in the axial plane a t 5 mm thick sections. Reconstructed images are reviewed on the computer in the coronal plane. FINDINGS: Limited CT sections are obtained the lung bases. Small amount of dependent left lower lobe atelectas is may be present. Nasogastric tube persists with the tip in the left upper quadrant of the abdomen w ithin the stomach.. CT ABDOMEN: Liver: Normal Spleen: Normal Pancreas: Normal Adrenal glands: The adrenal glands are normal. Gallbladder: Some fluid surrounds the gallbladder. Kidneys: No masses are evident. No hydronephrosis is present. No cysts are present. There is a 0.5 cm calcification within the inferior pole left kidney. No hydronephrosis or hydroureters are Aorta: Vascular calcification is within the aorta. Inferior vena cava: Normal. CT PELVIS: Diverticular changes are within colon. No acute diverticulitis is identified. Study is without oral c ontrast limiting bowel evaluation. Appendix: Not identified. No dilated tubular structure or inflammatory changes evident. Urinary bladder: Decompressed with a Santana catheter Genitourinary structures: Prostate is prominent. Hydrocele may be present. Osseous structures: No suspicious lytic or sclerotic lesions. Subcutaneous air is anterior to the pelvis. There is some air present within the right femoral vein. Catheter is present within the right femoral vein IMPRESSIONS: 1. Fluid surrounding the gallbladder. Consider cholecystitis. 2. Nonspecific appearance to the bowel. No dilated loops. Diverticulosis without acute diverticulitis is present. 3. Lines and catheters discussed above. 4. Suspected hydrocele. 5. Nonobstructing left renal stone
[2022-12-09] MEDS ORDERED: HYDROCORTISONE SUCCINATE 100 MG/2 ML VIAL IV STA (20:09)
[2022-12-09] MEDS ORDERED: NALOXONE 0.4 MG/ML 1 ML VIAL IV PRN (20:09)
--- NOTE | 2022-12-09 20:11 | ED ---
General Adult HPI - General Chief complaint: Altered Mental Status Stated complaint: AMS Time Seen by Provider: 12/09/22 17:11 Source: patient, RN notes reviewed, old records reviewed - History of Present Illness Initial comments: Patient is a 72-year-old male with past medical history remarkable for prior pulmonary embolism on blood thinning medication, diabetes, hypertension presents for altered mental status. Last known well per EMS and family was yesterday around 2 or 3 PM. He may have been seen by neighbors this morning but that is uncertain. He usually lives at home alone, takes care of himself with normal ADLs, and is alert and oriented 4. EMS initially was unable to provide much information other than altered mental status for the patient. They were notified and they found him down laying on the ground outside of his bathroom at home. He was not responsive. He was hypotensive, bradycardic. They started transcutaneously pacing the patient at the scene. They brought him here for further evaluation. Patient was unable to provide any form of information. Patient's family eventually did present after workup was already started on the patient. Patient's son Juan as well as Ashu disclose that the patient had been experiencing nausea, vomiting diarrhea for the last few days including over the weekend. No other obvious complaints as far as they know. I spoke with mom phone yesterday at 3 PM. - Related Data Home Medications Medication Instructions Recorded Confirmed Metoprolol Tartrate 25 mg PO BID 09/27/15 12/09/22 metFORMIN HCL [Glucophage] 1,500 mg PO DIRECTED 09/27/15 12/09/22 Dapagliflozin Propanediol [Farxiga] 10 mg PO DAILY 10/01/18 12/09/22 Tamsulosin [Flomax] 0.4 mg PO BID 10/01/18 12/09/22 metFORMIN HCL [Glucophage] 500 mg PO DIRECTED 10/01/18 12/09/22 Atorvastatin [Lipitor] 20 mg PO HS 10/12/19 12/09/22 Omeprazole [PriLOSEC] 40 mg PO DAILY 10/12/19 12/09/22 Apixaban [Eliquis] 5 mg PO BID 12/09/22 12/09/22 Semaglutide [Ozempic] 1 mg SQ DIRECTED 12/09/22 12/09/22 Temazepam [Restoril] 15 mg PO HS PRN 12/09/22 12/09/22 metFORMIN HCL 1,000 mg PO DIRECTED 12/09/22 12/09/22 traZODone HCL [Desyrel] 100 mg PO PC-BID 12/09/22 12/09/22 Allergies Allergy/AdvReac Type Severity Reaction Status Date / Time No Known Allergies Allergy Verified 10/12/19 19:04 Review of Systems ROS Statement: Those systems with pertinent positive or pertinent negative responses have been documented in the HPI. ROS Other: All systems not noted in ROS Statement are negative. Past Medical History Past Medical History: Diabetes Mellitus, GERD/Reflux, Hyperlipidemia, Hypertension, Prostate Disorder Additional Past Medical History / Comment(s): STATES IRREGULAR HEART BEAT History of Any Multi-Drug Resistant Organisms: None Reported Past Surgical History: Appendectomy, Joint Replacement, Orthopedic Surgery Additional Past Surgical History / Comment(s): LEFT KNEE REPLACED, LEFT HAND CARPAL TUNNEL, LEFT THUMB TENDON SX, RT ELBOW Past Anesthesia/Blood Transfusion Reactions: Previous Problems w/ Anesthesia Additional Past Anesthesia/Blood Transfusion Reaction / Comment(s): STATES "HARD TO WAKE UP" Past Psychological History: No Psychological Hx Reported Past Alcohol Use History: Occasional Additional Past Alcohol Use History / Comment(s): QUIT SMOKING 2001, SMOKED 1- 2PPD FROM TEENS Past Drug Use History: None Reported - Past Family History Father Family Medical History: Cancer Additional Family Medical History / Comment(s): MELANOMA General Exam - General Exam Comments Initial Comments: General: Somewhat unresponsive, groaning, with increased respirations. HEAD: Normal with no signs of head trauma. EYES: PERRLA, EOMI, conjunctiva normal, no discharge. Pupils are 3 mm and equal bilaterally. ENT: Hearing grossly intact, normal oropharynx. Some what dry mucous membranes. RESPIRATORY: Clear breath sounds bilaterally. No wheezes, rales, or rhonchi. No hypoxia present. Mild increased work of breathing. C/V: Bradycardic. S1 and S2 auscultated. Peripheral pulses are thready. ABD: Abd is soft, nontender, nondistended EXT: Normal range of motion, no obvious deformity SKIN: No rashes or lesions observed on exposed skin. NEURO: GCS of 8, this patient is withdrawing from pain, speaking incomprehensible sounds, as well as opening eyes to pain. Course Vital Signs 12/09/22 12/09/2212/09/23 16:41 17:00 17:15 Temperature Pulse Rate 60 49 L 46 L Respiratory 24 19 22 Rate Blood Pressure 53/34 70/42 38/28 O2 Sat by Pulse 97 96 97 Oximetry Fraction of Inspired Oxygen (FIO2) 12/09/22 12/09/22 12/09/22 18:00 18:15 18:18 Temperature Pulse Rate 47 L 57 L Respiratory 20 18 Rate Blood Pressure 83/47 75/49 O2 Sat by Pulse 98 97 Oximetry Fraction of 100 Inspired Oxygen (FIO2) 12/09/22 12/09/22 12/09/22 18:28 18:30 18:45 Temperature Pulse Rate 85 85 Respiratory 20 18 Rate Blood Pressure 80/40 80/44 O2 Sat by Pulse 98 100 Oximetry Fraction of 100 Inspired Oxygen (FIO2) 12/09/22 12/09/22 12/09/22 19:15 19:25 19:35 Temperature 84.2 F L Pulse Rate 72 72 Respiratory 20 20 Rate Blood Pressure 70/38 84/43 O2 Sat by Pulse 99 99 Oximetry Fraction of Inspired Oxygen (FIO2) 12/09/22 12/09/22 12/09/22 20:05 20:30 20:45 Temperature 82.8 F L Pulse Rate 72 74 79 Respiratory 20 20 20 Rate Blood Pressure 75/42 O2 Sat by Pulse 99 100 100 Oximetry Fraction of 100 Inspired Oxygen (FIO2) 12/09/22 20:46 Temperature Pulse Rate 70 Respiratory 20 Rate Blood Pressure 72/38 O2 Sat by Pulse 100 Oximetry Fraction of Inspired Oxygen (FIO2) ABP, PAP, CO, CI - Last 8 Hours Arterial Blood Pressure 71/38 Arterial Blood Pressure 66/31 Procedures - Arterial Line No standard instances Consent Obtained: emergent situation Technique Used: guide wire technique Post-Procedure: line sutured into place Patient Tolerated Procedure: well Complications: none - Central Line Placement Right Femoral Consent Obtained: emergent situation Patient Placed on Monitor/Pulse Ox: Yes Prep: mask, gown Central Line Prep: Chlorhexidine scrub Local Anesthesia Used: Lidocaine 1% Amount of Anesthesia Used (mls): 3 Ultrasound Used for Placement: Yes Central Line Lumen Inserted: triple Bloods Obtained for Lab: Yes Central Line Position: good blood return, all ports aspirated, flushed, capped, sutured in place with nylon Dressing Applied: Tegaderm Patient Tolerated Procedure: well Complications: none - Intubation Sedative: Etomidate Mg Given: 20 Paralytic: Rocuronium Mg Given: 50 Laryngoscope: other (glidescope) Size: 4 ET Tube Size: 7.5 Tube Secured Depth (cm): 26 Tube Secured Location: lips Tube Placement Confirmation: visualized tube passing through cords, equal breath sounds bilaterally, no breath sounds over epigastrium, confirmation by capnometry Patient Tolerated Procedure: well Intubation Complications: none - Sepsis Sepsis Focused Exam #1 Time Sepsis Criteria Met: 17:11 Sepsis Focused Exam Date: 12/09/22 Sepsis Focused Exam Time: :00 Sepsis Focused Exam Complete: Yes Vital Signs & RN Notes Reviewed: Yes Capillary Refill: > 2 Seconds: Fingers Peripheral Pulses: Weak: Radial (R), Radial (L) Skin Color: Ashen Respiratory Exam: normal lung sounds Cardiovascular Exam: bradycardia Medical Decision Making - Medical Decision Making Was pt. sent in by a medical professional or institution (, PA, SCALLOP DREDGER, urgent care, hospital, or half-way...) When possible be specific @ -No Did you speak to anyone other than the patient for history (EMS, parent, family, police, friend...)? What history was obtained from this source @ -Spoke with EMS as well as family who are able to provide recent medical history for the patient as well as recent complaints at home including nausea, vomiting, diarrhea. Did you review nursing and triage notes (agree or disagree)? Why? @ -I reviewed and agree with nursing and triage notes Were old charts reviewed (outside hosp., previous admission, EMS record, old EKG, old radiological studies, urgent care reports/EKG's, half-way records)? Report findings @ -Old charts reviewed from patient's last visit in September 2019. Differential Diagnosis (chest pain, altered mental status, abdominal pain women, abdominal pain men, vaginal bleeding, weakness, fever, dyspnea, syncope, headache, dizziness, GI bleed, back pain, seizure, CVA, palpatations, mental health, musculoskeletal)? @ -Differential Altered Mental Status: Hypoglycemia, DKA, hypercapnia, ETOH, overdose, CO poisoning, trauma, myxedema coma, HTN encephalopathy, infection, encephalitis, psychosis, intercranial hemorrhage, hepatic encephalopathy, meningitis, CVA, this is not meant to be an all-inclusive list EKG interpreted by me (3pts min.). @ -As above X-rays interpreted by me (1pt min.). @ -Endotracheal tube in place. G-tube in place. No obvious acute cardiopulmonary process. CT interpreted by me (1pt min.). @ -CT brain shows no obvious acute intracranial process. CT angiogram of the chest revealed no obvious PE or acute pulmonary process. CT of the abdomen and pelvis revealed no obvious process, except for possible fluid around the gallbladder. Indeterminate it is cholecystitis. Clinically correlate per radiology. U/S interpreted by me (1pt. min.). @ -None done What testing was considered but not performed or refused? (CT, X-rays, U/S, labs)? Why? @ -None What meds were considered but not given or refused? Why? @ -None Did you discuss the management of the patient with other professionals (professionals i.e. , PA, SCALLOP DREDGER, lab, RT, psych nurse, social welfare clerk, neurosurgical nurse, teacher, customs and border protection officer, case hardener)? Give summary @ -I discussed the case with Dr. Gatica of ICU who was in agreement with the plan. I discussed the case with Dr. Villegas of nephrology who is in agreement with the plan, but recommended increasing the bicarb drip to 200. I discussed case with the accepting physician, Dr. Mccann as well. Was smoking cessation discussed for >3mins.? @ -No Was critical care preformed (if so, how long)? @ -Yes, 110 minutes. Were there social determinants of health that impacted care today? How? (Homelessness, low income, unemployed, alcoholism, drug addiction, transportation, low edu. Level, literacy, decrease access to med. care, retirement, rehab)? @ -No Was there de-escalation of care discussed even if they declined (Discuss DNR or withdrawal of care, Hospice)? DNR status @ -Yes, initially was full code. After maxing out medical therapy, on 3 pressors, we did discuss prognosis for the patient and they were in agreement with continuing medical therapy, continuing with mechanical ventilation and life-support but no CPR and no chest compressions. Change was made to the patient's CODE STATUS. Discussed this with the patient's living sons, Ashu and Juan. Patient has no pre-arranged communication regarding end-of-life care. What co-morbidities impacted this encounter? (DM, HTN, Smoking, COPD, CAD, Cancer, CVA, ARF, Chemo, Hep., AIDS, mental health diagnosis, sleep apnea, morbid obesity)? @ -None Was patient admitted / discharged? Hospital course, mention meds given and route, prescriptions, significant lab abnormalities, going to OR and other pertinent info. @ -Based on the patient's presentation and physical exam, he presented bradycardiac, hypotensive, altered. He appears to be in shock, suspect septic shock. We will continue pacing as we attempt to stabilize the patient. He was initially connected to our defibrillator with pads, and connected to a monitor. Patient remains hypotensive. 2 large-bore IVs obtained. Patient received a total of 3-1/2 L of fluid from oh, warm. He does appear cold and is hypothermic. Started on bear hugger, as well as warming blanket, and warm blankets with warmed fluids. Right small central line placed by myself and Levophed was started for shock. Patient was empirically started on vancomycin and cefepime for sepsis. Left radial artery line placed by myself. Patient remains altered with a GCS of 8. We plan to intubate for airway protection but patient remains persistently hypotensive throughout this time. There is also a long delay in obtaining laboratory results due to lab delay. Patient was intubated for airway protection after maximizing both epinephrine and Levophed as well as vasopressors. Patient's lead soft blood pressures but tolerated the procedure well. ET tube in place following procedure. We did obtain CT brain, as well as CT PE and CT abdomen and pelvis. CT imaging was unremarkable except for possible cholecystitis, despite normal labs. Labs began returning at this time and were remarkable for what appears to be acute renal failure, hyperkalemia, patient is a mild leukocytosis as well, patient's troponin is minimally elevated at 0.019. Urinalysis unremarkable. Is not appear to be DKA. Lactic acid finally returned at 20.7. Patient has a poor VBG and this is reiterated on ABG postintubation which showed a respiratory acidosis with a pH of 6.569, pCO2 of 20.1, pO2 of 199. This ABG was obtained prior to intubation. Bicarb is 1.8. Patient appears to be in acute renal failure, dehydrated, with a lactic acidosis, in what is suspected to be undifferentiated shock versus septic shock, with hyperkalemia, hypotensive maxed out on 2 vasopressors, as well as being empirically treated for sepsis. I did discuss imaging as well as labs with the patient's family who is at bedside at this time. I re-updated them multiple times and the family room and at bedside. They did express understanding regarding the findings and the poor prognosis. They initially stated that the patient was full code which is why he was intubated, however now they're in agreement with making the patient no CPR at this time if the patient's heart were to stop. Patient is now on vasopressin and additional epinephrine and norepinephrine. Patient is receiving stress dose steroids hydrocortisone as w ell. We're continuing to attempt to warm the patient. He remains hypotensive and acidotic.. Poor prognosis overall. I spoke with the ICU attending Dr. Gatica who accepted the patient to the unit wa s in agreement with this plan. I spoke with the accepting physician Dr. Mccann who accepted the patient onto their service. I spoke with speech correction consultant with nephrology Dr. Villegas was consulted for their input but they're only recommendation is increasing bicarb drip to 200 , and otherwise were in agreemen t with the plan. All agreement poor prognosis. Family is in agreement with the poor prognosis. I did consult surgery to review the imaging but based on blood work, patient is not a surgical candidate for gallbladder surgery at this time and is purely based on imaging as the patient has no evidence of cholecystitis on blood work and normal LFTs and alk phos. Undiagnosed new problem with uncertain prognosis? @ -yes Drug Therapy requiring intensive monitoring for toxicity (Heparin, Nitro, Insulin, Cardizem)? @ -Yes Were any procedures done? @ -Central line, arterial line, intubation Diagnosis/symptom? @ -Undifferentiated shock, suspected septic shock Acute, or Chronic, or Acute on Chronic? @ -Acute Uncomplicated (without systemic symptoms) or Complicated (systemic symptoms)? @ -Complicated Side effects of treatment? @ -none Exacerbation, Progression, or Severe Exacerbation] @ -no Poses a threat to life or bodily function? @ -Yes Diagnosis/symptom? @ -Acute renal failure, hyperkalemia Acute, or Chronic, or Acute on Chronic? @ -Acute Uncomplicated (without systemic symptoms) or Complicated (systemic symptoms)? @ -Complicated Side effects of treatment? @ -none Exacerbation, Progression, or Severe Exacerbation] @ -no Poses a threat to life or bodily function? @ -Yes Diagnosis/symptom? @ -Lactic acidosis, metabolic acidosis with high AG Acute, or Chronic, or Acute on Chronic? @ -Acute Uncomplicated (without systemic symptoms) or Complicated (systemic symptoms)? @ -Complicated Side effects of treatment? @ -none Exacerbation, Progression, or Severe Exacerbation] @ -no Poses a threat to life or bodily function? @ -Yes - Lab Data Result diagrams: 12/09/22 16:56 12/09/22 20:05 Lab Results 12/09/22 12/09/22 12/09/22 Range/Units 16:56 16:56 16:56 WBC 15.2 H (3.8-10.6) k/uL RBC 4.12 L (4.30-5.90) m/uL Hgb 12.9 L (13.0-17.5) gm/dL Hct 44.9 (39.0-53.0) % MCV 108.9 H (80.0-100.0) fL MCH 31.4 (25.0-35.0) pg MCHC 28.8 L (31.0-37.0) g/dL RDW 13.2 (11.5-15.5) % Plt Count 238 (150-450) k/uL MPV 11.5 Neutrophils % (Manual) 63 % Band Neuts % (Manual) 5 % Lymphocytes % (Manual) 16 % Monocytes % (Manual) 11 % Eosinophils % (Manual) 1 % Metamyelocytes % 2 % Myelocytes % 3 % Neutrophils # (Manual) 10.30 H (1.3-7.7) k/uL Lymphocytes # (Manual) 2.43 (1.0-4.8) k/uL Monocytes # (Manual) 1.67 H (0-1.0) k/uL Eosinophils # (Manual) 0.15 (0-0.7) k/uL Metamyelocytes # (Man) 0.30 H (0) k/uL Myelocytes # (Manual) 0.46 H (0) k/uL Nucleated RBCs 0 (0-0) /100 WBC Manual Slide Review Performed Hypochromasia Marked Macrocytosis Marked A Crenated Cell Present PT 12.3 H (9.0-12.0) sec INR 1.2 H (<1.2) APTT 43.8 H (22.0-30.0) sec Sample Site ABG pH (7.35-7.45) ABG pCO2 (35-45) mmHg ABG pO2 (83-108) mmHg ABG HCO3 (21-25) mmol/L ABG Total CO2 (19-24) mmol/L ABG O2 Saturation (94-97) % ABG Base Excess mmol/L Kristopher Test VBG pH (7.31-7.41) VBG pCO2 (37-51) mmHg VBG HCO3 (24-28) mmol/L FiO2 % Sodium 135 L (137-145) mmol/L Potassium 6.5 H* (3.5-5.1) mmol/L Chloride 91 L (98-107) mmol/L Carbon Dioxide <5 L* (22-30) mmol/L Anion Gap mmol/L BUN 110 H* (9-20) mg/dL Creatinine 12.47 H* (0.66-1.25) mg/dL Est GFR (CKD-EPI)AfAm 4 (>60 ml/min/1.73 sqM) Est GFR (CKD-EPI)NonAf 4 (>60 ml/min/1.73 sqM) Glucose 182 H (74-99) mg/dL POC Glucose (mg/dL) (70-110) mg/dL POC Glu Director Workers Compensation ID Lactic Ac Sepsis Rflx Plasma Lactic Acid Marcelino (0.7-2.0) mmol/L Calcium 8.0 L (8.4-10.2) mg/dL Phosphorus (2.5-4.5) mg/dL Magnesium (1.6-2.3) mg/dL Total Bilirubin 0.4 (0.2-1.3) mg/dL AST 39 (17-59) U/L ALT 37 (4-49) U/L Alkaline Phosphatase 40 (38-126) U/L Ammonia (<30) umol/L Creatine Kinase (55-170) U/L Troponin I (0.000-0.034) ng/mL Total Protein 5.3 L (6.3-8.2) g/dL Albumin 3.3 L (3.5-5.0) g/dL Urine Color Urine Appearance (Clear) Urine pH (5.0-8.0) Ur Specific [place] (1.001-1.035) Urine Protein (Negative) Urine Glucose (UA) (Negative) Urine Ketones (Negative) Urine Blood (Negative) Urine Nitrite (Negative) Urine Bilirubin (Negative) Urine Urobilinogen (<2.0) mg/dL Ur Leukocyte Esterase (Negative) Urine RBC (0-5) /hpf Urine WBC (0-5) /hpf Urine Mucus (None) /hpf Urine Opiates Screen (NotDetected) Ur Oxycodone Screen (NotDetected) Urine Methadone Screen (NotDetected) Ur Propoxyphene Screen (NotDetected) Ur Barbiturates Screen (NotDetected) U Tricyclic Antidepress (NotDetected) Ur Phencyclidine Scrn (NotDetected) Ur Amphetamines Screen (NotDetected) U Methamphetamines Scrn (NotDetected) U Benzodiazepines Scrn (NotDetected) Urine Cocaine Screen (NotDetected) U Marijuana (THC) Screen (NotDetected) Acetone, Qual (Negative) 12/09/22 12/09/22 12/09/22 Range/Units 16:56 17:00 17:07 WBC (3.8-10.6) k/uL RBC (4.30-5.90) m/uL Hgb (13.0-17.5) gm/dL Hct (39.0-53.0) % MCV (80.0-100.0) fL MCH (25.0-35.0) pg MCHC (31.0-37.0) g/dL RDW (11.5-15.5) % Plt Count (150-450) k/uL MPV Neutrophils % (Manual) % Band Neuts % (Manual) % Lymphocytes % (Manual) % Monocytes % (Manual) % Eosinophils % (Manual) % Metamyelocytes % % Myelocytes % % Neutrophils # (Manual) (1.3-7.7) k/uL Lymphocytes # (Manual) (1.0-4.8) k/uL Monocytes # (Manual) (0-1.0) k/uL Eosinophils # (Manual) (0-0.7) k/uL Metamyelocytes # (Man) (0) k/uL Myelocytes # (Manual) (0) k/uL Nucleated RBCs (0-0) /100 WBC Manual Slide Review Hypochromasia Macrocytosis Crenated Cell PT (9.0-12.0) sec INR (<1.2) APTT (22.0-30.0) sec Sample Site ABG pH (7.35-7.45) ABG pCO2 (35-45) mmHg ABG pO2 (83-108) mmHg ABG HCO3 (21-25) mmol/L ABG Total CO2 (19-24) mmol/L ABG O2 Saturation (94-97) % ABG Base Excess mmol/L Kristopher Test VBG pH 6.61 L* (7.31-7.41) VBG pCO2 23 L (37-51) mmHg VBG HCO3 2 L* (24-28) mmol/L FiO2 % Sodium (137-145) mmol/L Potassium (3.5-5.1) mmol/L Chloride (98-107) mmol/L Carbon Dioxide (22-30) mmol/L Anion Gap mmol/L BUN (9-20) mg/dL Creatinine (0.66-1.25) mg/dL Est GFR (CKD-EPI)AfAm (>60 ml/min/1.73 sqM) Est GFR (CKD-EPI)NonAf (>60 ml/min/1.73 sqM) Glucose (74-99) mg/dL POC Glucose (mg/dL) (70-110) mg/dL POC Glu Director Workers Compensation ID Lactic Ac Sepsis Rflx Plasma Lactic Acid Marcelino (0.7-2.0) mmol/L Calcium (8.4-10.2) mg/dL Phosphorus (2.5-4.5) mg/dL Magnesium (1.6-2.3) mg/dL Total Bilirubin (0.2-1.3) mg/dL AST (17-59) U/L ALT (4-49) U/L Alkaline Phosphatase (38-126) U/L Ammonia (<30) umol/L Creatine Kinase (55-170) U/L Troponin I 0.019 (0.000-0.034) ng/mL Total Protein (6.3-8.2) g/dL Albumin (3.5-5.0) g/dL Urine Color Urine Appearance (Clear) Urine pH (5.0-8.0) Ur Specific [place] (1.001-1.035) Urine Protein (Negative) Urine Glucose (UA) (Negative) Urine Ketones (Negative) Urine Blood (Negative) Urine Nitrite (Negative) Urine Bilirubin (Negative) Urine Urobilinogen (<2.0) mg/dL Ur Leukocyte Esterase (Negative) Urine RBC (0-5) /hpf Urine WBC (0-5) /hpf Urine Mucus (None) /hpf Urine Opiates Screen Not Detected (NotDetected) Ur Oxycodone Screen Not Detected (NotDetected) Urine Methadone Screen Not Detected (NotDetected) Ur Propoxyphene Screen Not Detected (NotDetected) Ur Barbiturates Screen Not Detected (NotDetected) U Tricyclic Antidepress Not Detected (NotDetected) Ur Phencyclidine Scrn Not Detected (NotDetected) Ur Amphetamines Screen Not Detected (NotDetected) U Methamphetamines Scrn Not Detected (NotDetected) U Benzodiazepines Scrn Not Detected (NotDetected) Urine Cocaine Screen Not Detected (NotDetected) U Marijuana (THC) Screen Not Detected (NotDetected) Acetone, Qual (Negative) 12/09/22 12/09/22 12/09/22 Range/Units 17:07 17:35 17:45 WBC (3.8-10.6) k/uL RBC (4.30-5.90) m/uL Hgb (13.0-17.5) gm/dL Hct (39.0-53.0) % MCV (80.0-100.0) fL MCH (25.0-35.0) pg MCHC (31.0-37.0) g/dL RDW (11.5-15.5) % Plt Count (150-450) k/uL MPV Neutrophils % (Manual) % Band Neuts % (Manual) % Lymphocytes % (Manual) % Monocytes % (Manual) % Eosinophils % (Manual) % Metamyelocytes % % Myelocytes % % Neutrophils # (Manual) (1.3-7.7) k/uL Lymphocytes # (Manual) (1.0-4.8) k/uL Monocytes # (Manual) (0-1.0) k/uL Eosinophils # (Manual) (0-0.7) k/uL Metamyelocytes # (Man) (0) k/uL Myelocytes # (Manual) (0) k/uL Nucleated RBCs (0-0) /100 WBC Manual Slide Review Hypochromasia Macrocytosis Crenated Cell PT (9.0-12.0) sec INR (<1.2) APTT (22.0-30.0) sec Sample Site ABG pH (7.35-7.45) ABG pCO2 (35-45) mmHg ABG pO2 (83-108) mmHg ABG HCO3 (21-25) mmol/L ABG Total CO2 (19-24) mmol/L ABG O2 Saturation (94-97) % ABG Base Excess mmol/L Kristopher Test VBG pH (7.31-7.41) VBG pCO2 (37-51) mmHg VBG HCO3 (24-28) mmol/L FiO2 % Sodium (137-145) mmol/L Potassium (3.5-5.1) mmol/L Chloride (98-107) mmol/L Carbon Dioxide (22-30) mmol/L Anion Gap mmol/L BUN (9-20) mg/dL Creatinine (0.66-1.25) mg/dL Est GFR (CKD-EPI)AfAm (>60 ml/min/1.73 sqM) Est GFR (CKD-EPI)NonAf (>60 ml/min/1.73 sqM) Glucose (74-99) mg/dL POC Glucose (mg/dL) 177 H (70-110) mg/dL POC Glu Director Workers Compensation ID FaithvalIsabella Lactic Ac Sepsis Rflx Plasma Lactic Acid Marcelino 20.7 H* (0.7-2.0) mmol/L Calcium (8.4-10.2) mg/dL Phosphorus (2.5-4.5) mg/dL Magnesium (1.6-2.3) mg/dL Total Bilirubin (0.2-1.3) mg/dL AST (17-59) U/L ALT (4-49) U/L Alkaline Phosphatase (38-126) U/L Ammonia 263 H (<30) umol/L Creatine Kinase (55-170) U/L Troponin I (0.000-0.034) ng/mL Total Protein (6.3-8.2) g/dL Albumin (3.5-5.0) g/dL Urine Color Yellow Urine Appearance Clear (Clear) Urine pH 5.0 (5.0-8.0) Ur Specific [place] 1.013 (1.001-1.035) Urine Protein Trace H (Negative) Urine Glucose (UA) 4+ H (Negative) Urine Ketones Negative (Negative) Urine Blood Large H (Negative) Urine Nitrite Negative (Negative) Urine Bilirubin Negative (Negative) Urine Urobilinogen <2.0 (<2.0) mg/dL Ur Leukocyte Esterase Negative (Negative) Urine RBC 54 H (0-5) /hpf Urine WBC 19 H (0-5) /hpf Urine Mucus Rare H (None) /hpf Urine Opiates Screen (NotDetected) Ur Oxycodone Screen (NotDetected) Urine Methadone Screen (NotDetected) Ur Propoxyphene Screen (NotDetected) Ur Barbiturates Screen (NotDetected) U Tricyclic Antidepress (NotDetected) Ur Phencyclidine Scrn (NotDetected) Ur Amphetamines Screen (NotDetected) U Methamphetamines Scrn (NotDetected) U Benzodiazepines Scrn (NotDetected) Urine Cocaine Screen (NotDetected) U Marijuana (THC) Screen (NotDetected) Acetone, Qual (Negative) 12/09/22 12/09/22 12/09/22 Range/Units 17:54 18:26 20:00 WBC (3.8-10.6) k/uL RBC (4.30-5.90) m/uL Hgb (13.0-17.5) gm/dL Hct (39.0-53.0) % MCV (80.0-100.0) fL MCH (25.0-35.0) pg MCHC (31.0-37.0) g/dL RDW (11.5-15.5) % Plt Count (150-450) k/uL MPV Neutrophils % (Manual) % Band Neuts % (Manual) % Lymphocytes % (Manual) % Monocytes % (Manual) % Eosinophils % (Manual) % Metamyelocytes % % Myelocytes % % Neutrophils # (Manual) (1.3-7.7) k/uL Lymphocytes # (Manual) (1.0-4.8) k/uL Monocytes # (Manual) (0-1.0) k/uL Eosinophils # (Manual) (0-0.7) k/uL Metamyelocytes # (Man) (0) k/uL Myelocytes # (Manual) (0) k/uL Nucleated RBCs (0-0) /100 WBC Manual Slide Review Hypochromasia Macrocytosis Crenated Cell PT (9.0-12.0) sec INR (<1.2) APTT (22.0-30.0) sec Sample Site PITER ABG pH <6.80 L* (7.35-7.45) ABG pCO2 20 L (35-45) mmHg ABG pO2 199 H (83-108) mmHg ABG HCO3 2 L* (21-25) mmol/L ABG Total CO2 3 L (19-24) mmol/L ABG O2 Saturation 96.9 (94-97) % ABG Base Excess -36.4 mmol/L Kristopher Test no VBG pH (7.31-7.41) VBG pCO2 (37-51) mmHg VBG HCO3 (24-28) mmol/L FiO2 60 % Sodium (137-145) mmol/L Potassium (3.5-5.1) mmol/L Chloride (98-107) mmol/L Carbon Dioxide (22-30) mmol/L Anion Gap mmol/L BUN (9-20) mg/dL Creatinine (0.66-1.25) mg/dL Est GFR (CKD-EPI)AfAm (>60 ml/min/1.73 sqM) Est GFR (CKD-EPI)NonAf (>60 ml/min/1.73 sqM) Glucose (74-99) mg/dL POC Glucose (mg/dL) (70-110) mg/dL POC Glu Director Workers Compensation ID Lactic Ac Sepsis Rflx Y Plasma Lactic Acid Marcelino (0.7-2.0) mmol/L Calcium (8.4-10.2) mg/dL Phosphorus (2.5-4.5) mg/dL Magnesium (1.6-2.3) mg/dL Total Bilirubin (0.2-1.3) mg/dL AST (17-59) U/L ALT (4-49) U/L Alkaline Phosphatase (38-126) U/L Ammonia (<30) umol/L Creatine Kinase (55-170) U/L Troponin I (0.000-0.034) ng/mL Total Protein (6.3-8.2) g/dL Albumin (3.5-5.0) g/dL Urine Color Urine Appearance (Clear) Urine pH (5.0-8.0) Ur Specific [place] (1.001-1.035) Urine Protein (Negative) Urine Glucose (UA) (Negative) Urine Ketones (Negative) Urine Blood (Negative) Urine Nitrite (Negative) Urine Bilirubin (Negative) Urine Urobilinogen (<2.0) mg/dL Ur Leukocyte Esterase (Negative) Urine RBC (0-5) /hpf Urine WBC (0-5) /hpf Urine Mucus (None) /hpf Urine Opiates Screen (NotDetected) Ur Oxycodone Screen (NotDetected) Urine Methadone Screen (NotDetected) Ur Propoxyphene Screen (NotDetected) Ur Barbiturates Screen (NotDetected) U Tricyclic Antidepress (NotDetected) Ur Phencyclidine Scrn (NotDetected) Ur Amphetamines Screen (NotDetected) U Methamphetamines Scrn (NotDetected) U Benzodiazepines Scrn (NotDetected) Urine Cocaine Screen (NotDetected) U Marijuana (THC) Screen (NotDetected) Acetone, Qual Positive (Negative) 12/09/22 12/09/22 Range/Units 20:00 20:05 WBC (3.8-10.6) k/uL RBC (4.30-5.90) m/uL Hgb (13.0-17.5) gm/dL Hct (39.0-53.0) % MCV (80.0-100.0) fL MCH (25.0-35.0) pg MCHC (31.0-37.0) g/dL RDW (11.5-15.5) % Plt Count (150-450) k/uL MPV Neutrophils % (Manual) % Band Neuts % (Manual) % Lymphocytes % (Manual) % Monocytes % (Manual) % Eosinophils % (Manual) % Metamyelocytes % % Myelocytes % % Neutrophils # (Manual) (1.3-7.7) k/uL Lymphocytes # (Manual) (1.0-4.8) k/uL Monocytes # (Manual) (0-1.0) k/uL Eosinophils # (Manual) (0-0.7) k/uL Metamyelocytes # (Man) (0) k/uL Myelocytes # (Manual) (0) k/uL Nucleated RBCs (0-0) /100 WBC Manual Slide Review Hypochromasia Macrocytosis Crenated Cell PT (9.0-12.0) sec INR (<1.2) APTT (22.0-30.0) sec Sample Site ABG pH (7.35-7.45) ABG pCO2 (35-45) mmHg ABG pO2 (83-108) mmHg ABG HCO3 (21-25) mmol/L ABG Total CO2 (19-24) mmol/L ABG O2 Saturation (94-97) % ABG Base Excess mmol/L Kristopher Test VBG pH (7.31-7.41) VBG pCO2 (37-51) mmHg VBG HCO3 (24-28) mmol/L FiO2 % Sodium 136 L (137-145) mmol/L Potassium 5.4 H 5.4 H (3.5-5.1) mmol/L Chloride 91 L (98-107) mmol/L Carbon Dioxide <5 L* (22-30) mmol/L Anion Gap mmol/L BUN 107 H* (9-20) mg/dL Creatinine 11.77 H* (0.66-1.25) mg/dL Est GFR (CKD-EPI)AfAm 4 (>60 ml/min/1.73 sqM) Est GFR (CKD-EPI)NonAf 4 (>60 ml/min/1.73 sqM) Glucose 279 H (74-99) mg/dL POC Glucose (mg/dL) (70-110) mg/dL POC Glu Director Workers Compensation ID Lactic Ac Sepsis Rflx Plasma Lactic Acid Marcelino (0.7-2.0) mmol/L Calcium 9.1 (8.4-10.2) mg/dL Phosphorus 15.9 H* (2.5-4.5) mg/dL Magnesium 2.8 H (1.6-2.3) mg/dL Total Bilirubin 0.7 (0.2-1.3) mg/dL AST 135 H (17-59) U/L ALT 74 H (4-49) U/L Alkaline Phosphatase 53 (38-126) U/L Ammonia (<30) umol/L Creatine Kinase 283 H (55-170) U/L Troponin I (0.000-0.034) ng/mL Total Protein 4.7 L (6.3-8.2) g/dL Albumin 2.9 L (3.5-5.0) g/dL Urine Color Urine Appearance (Clear) Urine pH (5.0-8.0) Ur Specific [place] (1.001-1.035) Urine Protein (Negative) Urine Glucose (UA) (Negative) Urine Ketones (Negative) Urine Blood (Negative) Urine Nitrite (Negative) Urine Bilirubin (Negative) Urine Urobilinogen (<2.0) mg/dL Ur Leukocyte Esterase (Negative) Urine RBC (0-5) /hpf Urine WBC (0-5) /hpf Urine Mucus (None) /hpf Urine Opiates Screen (NotDetected) Ur Oxycodone Screen (NotDetected) Urine Methadone Screen (NotDetected) Ur Propoxyphene Screen (NotDetected) Ur Barbiturates Screen (NotDetected) U Tricyclic Antidepress (NotDetected) Ur Phencyclidine Scrn (NotDetected) Ur Amphetamines Screen (NotDetected) U Methamphetamines Scrn (NotDetected) U Benzodiazepines Scrn (NotDetected) Urine Cocaine Screen (NotDetected) U Marijuana (THC) Screen (NotDetected) Acetone, Qual (Negative) - EKG Data -: EKG Interpreted by Me EKG Comments: 12-lead Electrocardiogram Interpretation Note EKG was reviewed and interpreted by myself. 12-lead ECG performed at 1701 is interpreted by me as revealing sinus bradycardia at a rate of 44 beats per minute. Left axis deviation. QRS duration is 145 ms, QTc is 504 ms.. There were no ST or T wave abnormalities to suggest myocardial ischemia or injury. R wave progression across the precordium was delayed. By my interpretation this EKG is non-diagnostic for acute ischemia. There is concern for widened QRS complex, possible acidosis or hyperkalemia. Critical Care Time Critical Care Time: Yes Total Critical Care Time: 110 Disposition Clinical Impression: Altered mental status, Septic shock, Acute renal failure, Hyperkalemia, Lactic acidosis, Hypotension, Sepsis with acute hypoxic respiratory failure, Encounter for intubation, Sepsis, Bradycardia, Hypothermia Disposition: ADMITTED IP TO THIS HOSP Condition: Critical Time of Disposition: 19:01
[2022-12-09] MEDS ORDERED: MAGNESIUM SULFATE-D5W PMX 1 GM in DEXTROSE/WATER 1 100ML.BAG IVPB ONE (20:15)
[2022-12-09 20:49] VITALS: BP 72/38
[2022-12-09 21:15] LABS: Glucose,Whole Blood 307 mg/dL (70-110)
[2022-12-09 21:34] LABS: ABG Oxygen Saturation 98.8 % (94-97); ABG PCO2 39 mmHg (35-45); ABG PO2 >400 mmHg (83-108); ABG TCO2 5 mmol/L (19-24); Allen Test Performed? Yes
[2022-12-09 21:37] LABS: ABG Base Excess -34.5 mmol/L; ABG HCO3 4 mmol/L (21-25); ABG PH <6.80 (7.35-7.45)
[2022-12-09 23:05] VITALS: TEMP 86.9
[2022-12-09] MEDS ORDERED: MORPHINE SULFATE 2 MG/ML SYRINGE IV PRN (23:05)
[2022-12-09] MEDS ORDERED: MORPHINE SULFATE (100 MG/2 ML) 100 MG in SODIUM CHLORIDE 0.9% 100 ML IV SCH (23:15)
[2022-12-09 23:40] VITALS: PULSE 98; RESP 3
[2022-12-09 23:52] LABS: AST 135 U/L (17-59); Albumin 2.9 g/dL (3.5-5.0); Alkaline Phosphatase 53 U/L (38-126); Calcium 9.1 mg/dL (8.4-10.2); Chloride 91 mmol/L (98-107); Glucose 279 mg/dL (74-99); Magnesium 2.8 mg/dL (1.6-2.3); Potassium 5.4 mmol/L (3.5-5.1); Sodium 136 mmol/L (137-145); Total Bilirubin 0.7 mg/dL (0.2-1.3); Total Protein 4.7 g/dL (6.3-8.2)
[2022-12-09 23:52] LABS: Potassium 5.4 mmol/L (3.5-5.1)
[2022-12-09 23:57] LABS: African American GFR (CKD) 4 (>60 ml/min/1.73 sqM); Non-African American GFR(CKD) 4 (>60 ml/min/1.73 sqM)
[2022-12-09 23:59] LABS: ALT 74 U/L (4-49)
[2022-12-10 00:18] LABS: Blood Urea Nitrogen 107 mg/dL (9-20); Carbon Dioxide <5 mmol/L (22-30)
[2022-12-10 00:21] LABS: Phosphorus 15.9 mg/dL (2.5-4.5)
[2022-12-10 00:23] LABS: HCT 48.4 % (39.0-53.0); HGB 13.8 gm/dL (13.0-17.5); Hypochromasia Marked; MCH 31.5 pg (25.0-35.0); MCHC 28.6 g/dL (31.0-37.0); MCV 110.2 fL (80.0-100.0); Macrocytosis Marked; Mean Platelet Volume 11.4; Platelet Count 236 k/uL (150-450); RBC 4.39 m/uL (4.30-5.90); WBC 18.1 k/uL (3.8-10.6)
--- NOTE | 2022-12-10 00:55 | P.CNPUL ---
History of Present Illness Consult date: 12/09/22 Requesting physician: Nico Marti Reason for consult: other (ICU management) Chief complaint: Sepsis, septic shock History of present illness: I am seeing this patient in new consultation today 12/09/2022 in the intensive care unit for suspected septic shock. Patient is a 72-year-old white male with past medical history significant for pulmonary embolism, diabetes mellitus type 2, GERD, hyperlipidemia, hypertension. Apparently, the patient was found down outside of his bathroom by family earlier this evening. He lives alone, and his last known well was the previous day. EMS was called, and the patient was found to be bradycardic and hypotensive. He was transcutaneously paced in the field and brought into the emergency room. Per family, the patient had been experiencing significant nausea, vomiting, diarrhea over the last few days. No other complaints were reported. On arrival to the emergency room, the patient was fluid resuscitated with 4 L of crystalloid fluid, the patient was also started on epinephrine and norepinephrine infusions. Patient was intubated in the emergency room for airway protection. Initial ABG showed a pO2 of 199, pCO2 of 20, pH of less than 6.8. He was given a total of 4 A of sodium bicarb and started on a sodium bicarb infusion with 3 A and D5W infusing at 100 mL per hour. Patient was also found to be in acute renal failure and hyperkalemic. Initial CMP showed a sodium 135, potassium 6.5, chloride 91, serum CO2 less than 5, BUN 110, creatinine 12.47, glucose 182. Patient's potassium was treated with a combination of 10 units of regular insulin, 1 amp D50 W, 2 g calcium chloride, albuterol, and Lokelma. Potassium did come down to 5.4. Lactic acid level was 20.7. Initial tropoinin was 0.019. Urine tox screen was negative. Urinalysis did not show any evidence of UTI and was negative for ketones. CBC on arrival showed a WBC count of 15.2, hemoglobin 12.9, hematocrit 44.9, platelets 238. Brain CT on arrival showed no acute intracranial process. Chest CTA was negative for acute pulmonary embolism, and showed some mild atelectasis of the left lung base. Abdominal and pelvis CT with contrast showed fluid surrounding the gallbladder concerning for cholecystitis. No obvious perforation or dilated bowel loops. There was also diverticulosis without diverticulitis, suspected hydrocele, and nonobstructive left renal stone. LFTs and total bilirubin are non-elevated. ammonia was 263. Patient is currently in the intensive care unit, not requiring any sedation, and synchronous with the mechanical ventilator. Current ventilator settings are assist control, respiratory rate 20, tidal volume 450, FiO2 60%, PEEP of 5. Repeat ABGs did not improve after sodium bicarb replacement. PO2 is greater than 400, pCO2 39, pH less than 6.8. Patient was given additional 2 A of sodium bicarb and the 3 amps sodium bicarbonate in D5W infusion was increased to 150 mL per hour. Patient is still profoundly hypotensive and is currently on norepinephrine at 0.25 mcg/kg/m, vasopressin at 0.04 units per minute, and epinephrine of 0.2 mcg/kg/m infusing through a right femoral central line. Heart rate has improved and is currently 98 bpm. He is empirically covered on cefepime and vancomycin. Patient is hypothermic with temperature of 87F. Trina hugger on. Family is at bedside. Patient's prognosis is extremely poor. Review of Systems ROS unobtainable: due to endotracheal tube Past Medical History Past Medical History: Diabetes Mellitus, GERD/Reflux, Hyperlipidemia, Hypertension, Prostate Disorder Additional Past Medical History / Comment(s): STATES IRREGULAR HEART BEAT History of Any Multi-Drug Resistant Organisms: None Reported Past Surgical History: Appendectomy, Joint Replacement, Orthopedic Surgery Additional Past Surgical History / Comment(s): LEFT KNEE REPLACED, LEFT HAND CARPAL TUNNEL, LEFT THUMB TENDON SX, RT ELBOW Past Anesthesia/Blood Transfusion Reactions: Previous Problems w/ Anesthesia Additional Past Anesthesia/Blood Transfusion Reaction / Comment(s): STATES "HARD TO WAKE UP" Past Psychological History: No Psychological Hx Reported Past Alcohol Use History: Occasional Additional Past Alcohol Use History / Comment(s): QUIT SMOKING 2001, SMOKED 1- 2PPD FROM TEENS Past Drug Use History: None Reported - Past Family History Father Family Medical History: Cancer Additional Family Medical History / Comment(s): MELANOMA Medications and Allergies Home Medications Medication Instructions Recorded Confirmed Type Metoprolol Tartrate 25 mg PO BID 09/27/15 12/09/22 History metFORMIN HCL [Glucophage] 1,500 mg PO DIRECTED 09/27/15 12/09/22 History Dapagliflozin Propanediol [Farxiga] 10 mg PO DAILY 10/01/18 12/09/22 History Tamsulosin [Flomax] 0.4 mg PO BID 10/01/18 12/09/22 History metFORMIN HCL [Glucophage] 500 mg PO DIRECTED 10/01/18 12/09/22 History Atorvastatin [Lipitor] 20 mg PO HS 10/12/19 12/09/22 History Omeprazole [PriLOSEC] 40 mg PO DAILY 10/12/19 12/09/22 History Apixaban [Eliquis] 5 mg PO BID 12/09/22 12/09/22 History Semaglutide [Ozempic] 1 mg SQ DIRECTED 12/09/22 12/09/22 History Temazepam [Restoril] 15 mg PO HS PRN 12/09/22 12/09/22 History metFORMIN HCL 1,000 mg PO DIRECTED 12/09/22 12/09/22 History traZODone HCL [Desyrel] 100 mg PO PC-BID 12/09/22 12/09/22 History Allergies Allergy/AdvReac Type Severity Reaction Status Date / Time No Known Allergies Allergy Verified 10/12/19 19:04 Physical Exam Vitals: Vital Signs Temp Pulse Resp BP Pulse Ox FiO2 12/09/22 23:30 98 3 L 69 L 12/09/22 23:15 104 H 20 93 L 60 12/09/22 23:00 86.9 F L 89 20 95 60 12/09/22 22:45 93 20 95 12/09/22 22:30 89 20 94 L 12/09/22 22:15 86 20 95 12/09/22 22:00 87.8 F L 90 20 96 12/09/22 21:57 60 12/09/22 21:45 91 20 96 12/09/22 21:36 60 12/09/22 21:30 81 20 97 60 12/09/22 21:15 20 12/09/22 21:00 20 12/09/22 20:46 70 20 72/38 100 12/09/22 20:45 79 20 100 12/09/22 20:30 82.8 F L 74 20 100 100 12/09/22 20:05 72 20 75/42 99 12/09/22 19:35 84.2 F L 12/09/22 19:25 72 20 84/43 99 12/09/22 19:15 72 20 70/38 99 12/09/22 18:45 85 18 80/44 100 12/09/22 18:30 85 20 80/40 98 12/09/22 18:28 100 12/09/22 18:18 100 12/09/22 18:15 57 L 18 75/49 97 12/09/22 18:00 47 L 20 83/47 98 12/09/22 17:15 46 L 22 38/28 97 12/09/22 17:00 49 L 19 70/42 96 12/09/22 16:41 60 24 53/34 97 Intake and Output 12/09/22 12/09/22 12/10/22 14:59 22:59 06:59 Intake Total 488.31 435.234 Balance 488.31 435.234 Intake: IV 250 150 Dextrose 5% in Water 1, 250 150 000 ml @ 100 mls/hr IV . [id number] ONE with Sodium Bicarb (1 Meq/ml) 150 ml Rx#:[id number] Intake, IV Titration 238.31 285.234 Amount EPINEPHrine 4 mg In 237.64 144.024 Dextrose 5% in Water 250 ml @ 0.03 MCG/KG/MIN 10. 802 mls/hr IV .[id number] ONE Rx#:[id number] Morphine Sulfate (100 mg/ 0.629 2 ml) 100 mg In Sodium Chloride 0.9% 100 ml @ 1 MG/HR 1.02 mls/hr IV . Q24H [facility] [place] Rx#:[id number] Norepinephrine 32 mg In 0.67 46.585 Sodium Chloride 0.9% 218 ml @ 0.03 MCG/KG/MIN 1.34 mls/hr IV .Q24H [facility] [place] Rx#: [id number] Norepinephrine 4 mg In 73.494 Sodium Chloride 0.9% 250 ml @ 0.03 MCG/KG/MIN 10. 888 mls/hr IV .[id number] [facility] [place] Rx#:[id number] Vasopressin 60 unit In 20.502 Sodium Chloride 0.9% 150 ml @ 0.03 UNITS/MIN 4.59 mls/hr IV .Q24H [facility] [place] Rx#: [id number] Other: Voiding Method Indwelling Catheter Weight 95.254 kg ABP, PAP, CO, CI - Last 8 Hours Arterial Blood Pressure 39/24 Arterial Blood Pressure 45/27 Arterial Blood Pressure 51/28 Arterial Blood Pressure 45/27 Arterial Blood Pressure 39/25 Arterial Blood Pressure 62/33 Arterial Blood Pressure 59/33 Arterial Blood Pressure 66/36 Arterial Blood Pressure 76/37 Arterial Blood Pressure 74/37 Arterial Blood Pressure 73/39 Arterial Blood Pressure 71/38 Arterial Blood Pressure 66/31 GENERAL EXAM: Unresponsive, nonsedated, synchronous to mechanical ventilator HEAD: Normocephalic and atraumatic. EYES: dilated and fixed pupils equal in size NOSE: Clear with pink turbinates. THROAT: No erythema or exudates. NECK: No masses, no JVD. CHEST: No chest wall deformity. LUNGS: Equal air entry with no crackles, wheeze, rhonchi or dullness. Intubated on mechanical ventilator No conversational dyspnea or accessory muscle use.. CVS: S1 and S2 normal with no audible murmur, regular rhythm. No extra heart sounds ABDOMEN: No hepatosplenomegaly, hypoactive bowel sounds, no guarding or rigidity. SPINE: No scoliosis or deformity SKIN: No rashes CENTRAL NERVOUS SYSTEM: Unresponsive without any apparent focal deficits EXTREMITIES: There is a right femoral central line and a left wrist arterial line. There is no peripheral edema, clubbing, or cyanosis. Peripheral pulses are weak in all 4 extremities Results - Laboratory Findings CBC and BMP: 12/09/22 16:56 12/09/22 20:00 ABG ABG pH <6.80 (7.35-7.45) L* 12/09/22 21:31 ABG pCO2 39 mmHg (35-45) 12/09/22 21:31 ABG pO2 >400 mmHg (83-108) H 12/09/22 21:31 ABG O2 Saturation 98.8 % (94-97) H 12/09/22 21:31 PT/INR, D-dimer PT 12.3 sec (9.0-12.0) H 12/09/22 16:56 INR 1.2 (<1.2) H 12/09/22 16:56 Abnormal lab findings: Abnormal Labs 12/09/22 12/09/22 12/09/22 16:56 16:56 16:56 WBC 15.2 H RBC 4.12 L Hgb 12.9 L MCV 108.9 H MCHC 28.8 L Neutrophils # (Manual) 10.30 H Monocytes # (Manual) 1.67 H Metamyelocytes # (Man) 0.30 H Myelocytes # (Manual) 0.46 H Macrocytosis Marked A PT 12.3 H INR 1.2 H APTT 43.8 H ABG pH ABG pCO2 ABG pO2 ABG HCO3 ABG Total CO2 ABG O2 Saturation VBG pH VBG pCO2 VBG HCO3 Sodium 135 L Potassium 6.5 H* Chloride 91 L Carbon Dioxide <5 L* BUN 110 H* Creatinine 12.47 H* Glucose 182 H POC Glucose (mg/dL) Plasma Lactic Acid Marcelino Calcium 8.0 L Ammonia Total Protein 5.3 L Albumin 3.3 L Urine Protein Urine Glucose (UA) Urine Blood Urine RBC Urine WBC Urine Mucus 12/09/22 12/09/22 12/09/22 17:00 17:07 17:35 WBC RBC Hgb MCV MCHC Neutrophils # (Manual) Monocytes # (Manual) Metamyelocytes # (Man) Myelocytes # (Manual) Macrocytosis PT INR APTT ABG pH ABG pCO2 ABG pO2 ABG HCO3 ABG Total CO2 ABG O2 Saturation VBG pH 6.61 L* VBG pCO2 23 L VBG HCO3 2 L* Sodium Potassium Chloride Carbon Dioxide BUN Creatinine Glucose POC Glucose (mg/dL) Plasma Lactic Acid Marcelino 20.7 H* Calcium Ammonia 263 H Total Protein Albumin Urine Protein Trace H Urine Glucose (UA) 4+ H Urine Blood Large H Urine RBC 54 H Urine WBC 19 H Urine Mucus Rare H 12/09/22 12/09/22 12/09/22 17:45 17:54 21:13 WBC RBC Hgb MCV MCHC Neutrophils # (Manual) Monocytes # (Manual) Metamyelocytes # (Man) Myelocytes # (Manual) Macrocytosis PT INR APTT ABG pH <6.80 L* ABG pCO2 20 L ABG pO2 199 H ABG HCO3 2 L* ABG Total CO2 3 L ABG O2 Saturation VBG pH VBG pCO2 VBG HCO3 Sodium Potassium Chloride Carbon Dioxide BUN Creatinine Glucose POC Glucose (mg/dL) 177 H 307 H Plasma Lactic Acid Marcelino Calcium Ammonia Total Protein Albumin Urine Protein Urine Glucose (UA) Urine Blood Urine RBC Urine WBC Urine Mucus 12/09/22 21:31 WBC RBC Hgb MCV MCHC Neutrophils # (Manual) Monocytes # (Manual) Metamyelocytes # (Man) Myelocytes # (Manual) Macrocytosis PT INR APTT ABG pH <6.80 L* ABG pCO2 ABG pO2 >400 H ABG HCO3 4 L* ABG Total CO2 5 L ABG O2 Saturation 98.8 H VBG pH VBG pCO2 VBG HCO3 Sodium Potassium Chloride Carbon Dioxide BUN Creatinine Glucose POC Glucose (mg/dL) Plasma Lactic Acid Marcelino Calcium Ammonia Total Protein Albumin Urine Protein Urine Glucose (UA) Urine Blood Urine RBC Urine WBC Urine Mucus - Diagnostic Findings Chest x-ray: image reviewed CT scan - chest: image reviewed Assessment and Plan Assessment: Severe sepsis and septic shock refractory to fluid replacement with 4 L crystalloid, currently maxed on vasopressors. Initial lactic acid level was 20.7. Abdominal and pelvis CT with contrast showed fluid surrounding the gallbladder concerning for cholecystitis. Ammonia 263. Total bilirubin 0.4. LFTs are not elevated. No obvious perforation or dilated bowel loops. No obvious evidence of pneumonia on chest CTA. Urinalysis not significant for UTI. Severe high anion gap metabolic acidosis secondary to lactic acidemia. Patient has been given a total of 6 A of sodium bicarb and currently has a sodium bicarbonate infusion with 3 A and D5W at 150 ML's per hour. Hyperkalemia resulting in bradycardia requiring transcutaneous pacing, currently improved on epinephrine infusion. Potassium is down to 5.4, status post K cocktail Intubated to the mechanical ventilator for airway protection History of pulmonary embolism, repeat CTA showed no evidence of pulmonary embolism. Diabetes mellitus type 2 GERD Hyperlipidemia Plan: Patient's condition is obviously critical. Family is at bedside, including patient's children, and wish the patient to be made comfort care. They state the patient would never want to be on the mechanical ventilator. They want to withdraw care. The case was discussed with Dr. Gatica, and he agrees with this decision. Comfort care order sets initiated I have personally seen and examined the patient, performed the documentation and the assessment and plan as written. Number of minutes spent on the visit:20 Time with Patient: Greater than 30
[2022-12-10 01:17] LABS: Band Neutrophils % 3 %; Metamyelocytes # (M) 0.91 k/uL (0); Metamyelocytes % 5 %; Monocytes # (M) 1.63 k/uL (0-1.0); Myelocytes # (M) 0.18 k/uL (0); Myelocytes % 1 %; Neutrophils % (M) 66 %; Nucleated Red Blood Cells 0 /100 WBC (0-0); Total Cells Counted 100
[2022-12-10] MEDS ORDERED: HYDROCORTISONE SUCCINATE 100 MG/2 ML VIAL IV SCH (02:00)
[2022-12-10] MEDS ORDERED: DEXTROSE 5% IN WATER 1,000 ML with SODIUM BICARB (1 MEQ/ML) 150 ML IV SCH (06:00)
[2022-12-10] MEDS ORDERED: CHLORHEXIDINE GLUCONATE 15 ML CUP MUCOUS MEM SCH (09:00)
[2022-12-10] MEDS ORDERED: VANCOMYCIN 1,750 MG in SODIUM CHLORIDE 0.9% 500 ML 500 ML IVPB ONE (14:00)
== END 2022-12-09 23:41 | disposition expired | DRG 871 ==
LOC: EC 16:41 → 2SICU 20:10
PROVIDERS: ADMIT Internal Medicine; ATTEND Internal Medicine
PROC: 0BH17EZ Insertion of Endotracheal Airway into Trachea, Via Natural or Artificial Opening (ICD-10-PCS; principal; 2022-12-09)
PROC: 4A133B1 Monitoring of Arterial Pressure, Peripheral, Percutaneous Approach (ICD-10-PCS; 2022-12-09)
PROC: 4A133J1 Monitoring of Arterial Pulse, Peripheral, Percutaneous Approach (ICD-10-PCS; 2022-12-09)
PROC: 3E033XZ Introduction of Vasopressor into Peripheral Vein, Percutaneous Approach (ICD-10-PCS; 2022-12-09)
PROC: 06HM33Z Insertion of Infusion Device into Right Femoral Vein, Percutaneous Approach (ICD-10-PCS; 2022-12-09)
PROC: 5A1935Z Respiratory Ventilation, Less than 24 Consecutive Hours (ICD-10-PCS; 2022-12-09)
DX: A41.9 Sepsis, unspecified organism (principal); J96.01 Acute respiratory failure with hypoxia; R65.21 Severe sepsis with septic shock; E87.20 Acidosis, unspecified; N17.9 Acute kidney failure, unspecified; Z51.5 Encounter for palliative care; T68.XXXA Hypothermia, initial encounter; K21.9 Gastro-esophageal reflux disease without esophagitis; K57.90 Diverticulosis of intestine, part unspecified, without perforation or abscess without bleeding; N43.3 Hydrocele, unspecified; N20.0 Calculus of kidney; E78.5 Hyperlipidemia, unspecified; E87.5 Hyperkalemia; I10 Essential (primary) hypertension; R00.1 Bradycardia, unspecified; Z79.01 Long term (current) use of anticoagulants; Z79.84 Long term (current) use of oral hypoglycemic drugs; Z93.1 Gastrostomy status; Z86.711 Personal history of pulmonary embolism; Z79.899 Other long term (current) drug therapy; K81.9 Cholecystitis, unspecified; Z66 Do not resuscitate
CPT/HCPCS: 31500; 36415; 36556; 36620; 70450; 71045; 71275; 74177; 80053; 80306; 81001; 82009; 82140; 82550; 82803; 82805; 83605; 83735; 84100; 84132; 84484; 85025; 85610; 85730; 87040; 93005; 94002; 96361; 96365; 96366; 96368; 96375; 96376; 99291; 99292